=== PATIENT | male | born 1930 | race Caucasian/White ===

== ENCOUNTER 2017-02-27 21:17 | Inpatient (IN) ==
--- NOTE | 2017-02-27 21:52 | Emergency Department Note ---
ICuauhtemoc Kasabria, am scribing for, and in the presence of, Jammie Laboy DO 21 :38. IBenoit Debra, DO, personally performed the services described in this documentation, ascribed by Krystal Posadas in my presence, and it is both accurate and complete . Arrival - Arrival Chief Complaint: Chest Pain Stated Complaint: TRANSFER FOR NSTEMI ED Nursing Triage Note: TRANSFER FROM [facility] FOR NSTEMI, PT BEGAN HAVING CHEST PAIN THIS MORNING. Mode of Arrival: Stretcher Limitations: No Limitations Source: Patient Time Seen by Provider: 02/27/17 21:29 - History of Present Illness HPI Narrative: This is a 89 y/o white male presenting to the ED as transfer from [facility] for further evaluation for chest pain with SOB onset today at approximately 1100 while the pt was sitting on the porch. He describes that pain as very intense. His pain level is at 1-2 now. This is the first time the pt has had cardiac problems; otherwise, the pt is healthy with no PMHx. Initially, the pt thought his chest pain was indigestion so he took Rolaids with no relief. He then drank a cup of cold water and he states this helped with his chest pain. He denies diaphoresis, cough, fever, chills, nausea, vomiting, and radiating back pain. Consistency: constant Severity: moderate Allergies/Adverse Reactions: Allergies Allergy/AdvReac Type Severity Reaction Status Date / Time No Known Allergies Allergy Unverified 02/27/17 21:18 Review of System - Review of System 12 point system: reviewed and no additional remarkable complaints except as stated - Review of System Constitutional: Absent: chills, fever, weakness Eyes: Absent: vision change Head/Ears/Nose/Throat: Absent: nasal drainage Respiratory: Absent: cough, wheezing Cardiovascular: Present: chest pain. Absent: dyspnea on exertion Gastrointestinal: Absent: abdominal pain, nausea, vomiting, diarrhea Genitourinary male: Absent: dysuria Musculoskeletal: Absent: arm pain, back pain, leg pain, neck pain Skin: Absent: rash Neurological: Absent: headache, weakness, confusion, vertigo Psychiatric: Absent: anxiety Endocrine: Absent: fatigue Hematological/Lymphatic: Absent: easy bleeding Allergic/Immunologic: Absent: facial swelling Medical,Surgical,& Family Hx - Medical History Musculoskeletal: History of: Musculoskeletal Problems (ARTHRITIS) - Family History Family History: Reports;: Family Heart Disease, Family Hypertension - Social History Smoking Status: Never smoker Frequency of Alcohol Use: None Type of Drug Use: None Exam Vital Signs: Vital Signs Temperature 98.7 F 02/27/17 21:18 Pulse Rate 71 02/27/17 21:18 Respiratory Rate 20 02/27/17 22:02 Blood Pressure 138/82 02/27/17 21:18 O2 Sat by Pulse Oximetry 100 02/27/17 21:18 - General General appearance: alert, in no apparent distress - Head Head exam: Present: atraumatic, normocephalic, normal inspection - Eye Eye exam: Present: normal appearance, PERRL, EOMI - ENT ENT exam: Present: normal exam, normal oropharynx, mucous membranes moist, TM's normal bilaterally, normal external ear exam - Neck Neck exam: Present: normal inspection, full ROM, trachea midline. Absent: tenderness - Chest Chest inspection: Present: normal inspection, symmetric chest wall rise. Absent : tenderness - Respiratory Respiratory exam: Present: normal lung sounds bilaterally - Cardiovascular Cardiovascular exam: Present: regular rate, normal rhythm, normal heart sounds - Abdominal Exam Abdominal exam: Present: soft. Absent: distention, tenderness - Extremities Exam Extremities exam: Present: normal inspection, full ROM, normal capillary refill. Absent: tenderness, pedal edema, calf tenderness - Back Exam Back exam: Present: normal inspection, full ROM. Absent: tenderness - Neurological Exam Neurological exam: Present: alert, oriented X3, CN II-XII intact, normal gait, reflexes normal - Psychiatric Psychiatric exam: Present: normal affect, normal mood - Skin Skin exam: Present: warm, dry, intact, normal color. Absent: rash, diaphoresis Course Course Narrative: spoke with Dr Ferrari who will come down and see patient - Reevaluation(s) Reevaluation #1: pt doing well, no chest pain currently. DR Ferrari to admit pt and will take to cardiac catheterization technologist in am Results - Labs Lab Results: I have reviewed the patients labs Labs: Laboratory Tests 02/27/17 21:28 Total Creatine Kinase 697 H CK-MB (CK-2) 83.4 H CK and CKMB Interp 12.0 Troponin I 22.000 H - EKG EKG results: interpreted by CONRAD Disposition Clinical Impression: Non-ST elevated myocardial infarction Case discussed with: patient, patient's family Disposition: Still a Patient Condition: Stable Time of Disposition: 22:18
[2017-02-27] MEDS ORDERED: ACETAMINOPHEN 325 MG TABLET PO PRN (22:16)
[2017-02-27] MEDS ORDERED: ONDANSETRON 4 MG/2 ML VIAL IV PRN (22:16)
[2017-02-27] MEDS ORDERED: ZALEPLON 5 MG CAPSULE PO PRN (22:16)
[2017-02-27] MEDS ORDERED: TICAGRELOR 90 MG TABLET PO STA (22:21)
--- NOTE | 2017-02-27 22:26 | Cardiology History & Physical ---
Assessment and Plan - Time spent with patient Time spent with patient: Greater than 30 minutes (exam, interview,documentation and consent) (1) Dyslipidemia Status: Acute Current Visit: Yes (2) Elevated glucose Status: Acute Current Visit: Yes (3) Non-ST elevated myocardial infarction Status: Acute Current Visit: Yes History of Present Illness Chief complaint: Chest pain History of present illness: Mr. Chavez is a 86 year old male with no previous major medical diagnoses except osteoarthritis who has many risk factors including advanced age reformed tobacco use and strong family history with one brother passing away in his 60s from massive heart attack who presents with chest pain that came on acutely while he was sitting on the porch today associated with nausea and diaphoresis and his stated that he looks "pale." He states the pain was 10 out of 10 it felt like heartburn. He has had a couple episodes of heartburn in the last 6 months he has taken a a Rolaids for and it went away the Rolaids did not phase his discomfort today. He is very sedentary and he walks approximately 100 yards from his home to his shop 2 or 3 times a day and that is only exercise he routinely gets he is not experiencing any chest pain or shortness of breath with this. This is the first time the Rolaids has not helped his heartburn type discomfort. The patient went to the [facility] emergency room approximately 5 hours later. The patient's pain really sort of coming down during that time. He had an EKG there that showed sinus rhythm with a right bundle branch block no acute changes and when his troponin came back he received Lovenox he states this was around 6:00. They gave him an aspirin when he presented but they documented that he was pain-free he did not get nitroglycerin. He has received nitroglycerin and morphine since that time. He presented here to our emergency room was evaluated in our is called. I came to see the patient. I was called approximately 940. Saw and evaluated the patient possibly 10 PM he states that he was pain-free. They repeated a troponin here at our facility and his troponin is 22. I asked numerous times the patient states that he is not having any discomfort at this time. He is now approximately 11 hours post his most severe crescendo in his pain. I discussed with the patient all risk benefits and options. I told him that if he were still having discomfort I would take [facility] as he has no diagnostic EKG changes. He has sinus rhythm with a right bundle branch block some LVH type changes and nonspecific lateral ST segment changes. He again denied chest discomfort. I will load the patient with Brilinta tonight and place him in the ICU. His Lovenox dose according to him was around 530 or 6 :00 this evening. I have notified the [facility] they are aware of the patient's presence and we will anticipate left heart cath in the morning. Hopefully we will be successful via the right right radial approach. If in the interim the patient has any chest discomfort we will take sooner. The patient's home medications are not available in the chart however he takes at home a 81 mg aspirin daily Mobic daily which is taken for many years which is also a risk factor for coronary artery disease and meclizine for his chronic vertigo. Allergies Allergy/AdvReac Type Severity Reaction Status Date / Time No Known Allergies Allergy Unverified 02/27/17 21:18 - Constitutional Constitutional: Present: daytime sleepiness. Absent: anorexia, chills, weight gain, weight loss - EENT Eyes: Absent: blurry vision, diplopia Ears: Present: decreased hearing. Absent: ear discharge Nose, mouth and throat: Absent: headache(s), hoarseness, lip swelling, neck pain , throat swelling - Cardiovascular Cardiovascular: Present: as per HPI, chest pain at rest, diaphoresis, dyspnea, dyspnea on exertion. Absent: chest pain with activity, claudication, edema, radiating jaw, neck or arm pain, lightheadedness, orthopnea, palpitations, PND - Respiratory Respiratory: Present: dyspnea, dyspnea on exertion. Absent: cough - Gastrointestinal Gastrointestinal: Present: heartburn. Absent: abdominal pain, bloating - Genitourinary Genitourinary: Present: difficulty urinating, nocturia. Absent: hematuria - Musculoskeletal Musculoskeletal: Present: arthralgias - Neurological Neurological: Present: abnormal gait, tremor(s). Absent: convulsions, headache( s), memory loss - Psychiatric Psychiatric: Absent: anxiety, depression - Endocrine Endocrine: Absent: cold intolerance, heat intolerance - Hematologic/Lymphatic Hematologic/Lymphatic: Absent: easy bleeding, easy bruising Medical,Surgical,& Family Hx - Medical History Musculoskeletal: History of: Musculoskeletal Problems (ARTHRITIS, osteoarthritis ) - Surgical History Orthopedic Surgeries: Surgical HX of;: Orthopedic Surgery (Bilateral knee replacements, back surgery and surgery after trauma left nolen) - Family History Family History: Reports;: Family Heart Disease, Family Hypertension - Social History Smoking Status: Former smoker Frequency of Alcohol Use: None Type of Drug Use: None Marital Status: Lives With:: Spouse Functional capacity: independent ambulation Cardiology Physical Exam - Constitutional Vitals: Vital Signs Temp Pulse Resp BP Pulse Ox 98.7 F 71 20 138/82 100 02/27/17 21:18 02/27/17 21:18 02/27/17 22:02 02/27/17 21:18 02/27/17 21:18 Intake and Output 02/27/17 02/27/17 02/27/17 07:59 15:59 23:59 Other: Weight 102.058 kg Patient Weight 02/27/17 23:59 Weight 102.058 kg General appearance: normal weight - Head Head exam: Present: normal inspection - Eye Eye exam: Present: EOMI - ENT ENT exam: Present: normal exam - Neck Neck exam: Present: normal inspection - Respiratory Respiratory exam: Present: clear to auscultation bilaterally - Cardiovascular Cardiovascular exam: Present: regular rate and rhythm (I hear no rubs murmurs or gallops in the ambient noise in the emergency room) - GI/Abdominal GI/Abdominal exam: Present: normal bowel sounds - Extremities Exam Extremities exam: Present: other (Traumatic repair of left upper extremity with deformity right upper extremity is normal distal pulses are good on both lower extremities) - Neurological Exam Neurological exam: Present: alert, oriented X3 - Psychiatric Psychiatric exam: Present: normal affect, normal mood - Skin Skin exam: Present: normal color, warm Result/EKG - Labs Labs: Laboratory Results - last 24 hr 02/27/17 21:28 Total Creatine Kinase 697 H CK-MB (CK-2) 83.4 H CK and CKMB Interp 12.0 Troponin I 22.000 H - EKG EKG results: interpreted by me (RBBB ) Quality Measures - VTE Contraindication to Pharmacological VTE Prophylaxis: Already on Theraputic Agent , No Prophylaxis Needed
[2017-02-27] MEDS ORDERED: SODIUM CHLORIDE 0.45% 1,000 ML IV SCH (22:30)
[2017-02-27] MEDS ORDERED: NITROGLYCERIN DRIP 50 MG/250 ML BOTTLE IV SCH (23:09)
--- NOTE | 2017-02-27 23:36 | EKG Report ---
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
[2017-02-27] MEDS: ATORVASTATIN 80 MG TABLET PO SCH (23:51)
[2017-02-27] MEDS: MORPHINE 2 MG/1 ML SYRINGE IV PRN (23:52)
--- NOTE | 2017-02-28 02:14 | EKG Report ---
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
--- NOTE | 2017-02-28 05:11 | EKG Report ---
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
[2017-02-28 05:56] LABS: Basophils % 0.2 % (0.0-0.8); Eosinophils # 0.1 10*3/uL (0.0-0.87); Eosinophils % 1.6 % (0.00-10.9); Hematocrit 36.8 VOL% (42.0-52.0); Hemoglobin 12.4 GM/DL (14.0-18.0); Immature Granulocytes % 0.6 %; Immature Granulocytes Absolute 0.05 #; Lymphocytes # 1.3 10*3/uL (1.4-4.0); Lymphocytes % 16.4 % (21.2-54.2); Mean Corpuscular HGB Conc 33.7 GM/DL (32-36); Mean Corpuscular Hemoglobin 30 PG (27-34); Mean Corpuscular Volume 89.8 FL (87-102); Mean Platelet Volume 10.8 FL (9.6-12.0); Monocytes # 0.7 10*3/uL (0.11-0.8); Neutrophils # 5.8 10*3/uL (1.4-7.4); Neutrophils % 72.2 % (38.7-73.9); Platelet Count 217 T/CUMM (130-400); Red Cell Distribution Width 13.3 % (9.3-17.3); White Blood Count 8.1 T/CUMM (4-12)
--- NOTE | 2017-02-28 06:20 | History and Physical Update ---
Sedation H&P Update - History and Physical H&P was reviewed, the patient examined and there: are no changes in the patients condition since last H&P was completed. (No additional chest pain. Troponin continued to rise.) - Dictation Physical: refer to H&P completed by admitting physician - Physical Exam Mental Status: alert and oriented Heart: regular rate and rhythm Lung: clear to auscultation Abdomen: within normal limits Vitals: within normal limits - Sedation Plan for Sedation: moderate Patient Consent: Procedure disscussed with patient and patinet has consented., Risks and benefits were discussed with patient,including infection,, bleeding, injury to surrounding structures, seizure, temporary nerve, Patient understands and accepts potential risks/benefits and agrees to, proceed. ASA Class: III Airway Assessment: Class II: Soft palate, uvula, fauces visible
--- NOTE | 2017-02-28 06:22 | Event Note ---
The patient denies any more chest pain to me. He apparently told the nurses last night he was having some discomfort and they started the nitro infusion they say he has not had any more complaints since that time. His EKG looks like there may be some subtle anterior chest. Also talked to the patient about his tremor he states that he was told that there was a "blood clog" in the back of his head and there is nothing that they could do about it by someone in [place] previously. He states he has had this for a long time. I am not exactly sure of that diagnosis. He did not tell me anything about this last night medical history reviewed. He has had a sizable troponin elevation but continues to deny pain. Because of his tremor and what I suspect will be difficult anatomy I am going to choose to go femoral.
[2017-02-28] MEDS: ASPIRIN EC 81 MG TABLET PO SCH ×2 (06:35→11:40)
[2017-02-28 06:36] LABS: Calcium 8.8 MG/DL (8.5-10.1); Osmolality,Calculated 283.3 MOS/KG (273-304); Risk Ratio 3.98; Thyroid Stimulating Hormone 1.14 uIU/ml (0.358-3.74); VLDL CHOLESTEROL 28.6 MG/DL
[2017-02-28] MEDS: ENOXAPARIN 100 MG/ML SYRINGE SUBCUT SCH ×2 (06:52→17:40)
[2017-02-28] MEDS ORDERED: LIDOCAINE 1% 20 ML VIAL ONE (07:24)
[2017-02-28] MEDS ORDERED: HEPARIN/NACL 0.9% 2 UNITS/ML 1,000 ML IV ONE (07:24)
[2017-02-28] MEDS ORDERED: diphenhydrAMINE CAP 25 MG CAPSULE PO ONE (07:30)
[2017-02-28] MEDS ORDERED: DIAZEPAM 5 MG TABLET PO ONE (07:30)
[2017-02-28] MEDS ORDERED: fentaNYL 100 MCG/2 ML VIAL ONE (07:53)
[2017-02-28] MEDS ORDERED: MIDAZOLAM 2 MG/2 ML VIAL ONE (07:53)
[2017-02-28] MEDS ORDERED: diphenhydrAMINE 50 MG/1 ML VIAL ONE (08:04)
[2017-02-28] MEDS ORDERED: TICAGRELOR 90 MG TABLET PO SCH (09:00)
--- NOTE | 2017-02-28 09:02 | Cardiology Operative Report ---
Date of Procedure:: 02/28/17 Pre-op diagnosis: NSTEMI Post-op diagnosis: other (Severe 3 vessel CADZ with ICM and mitral regurgitation , AAA and right iliac artery) Procedure: Procedures: 1. Left heart catheterization resting hemodynamics 2. Left ventriculography 3. Selective left and right coronary angiography 4. Selective left subclavian angiography 5. Distal abdominal aortic angiography with visualization of the iliacs 6. Right femoral iliac angiography 7. Closure right femoral arteriotomy After consent was taken from the patient. Taken to the catheterization lab for left heart catheterization via the femoral artery. Time out was taken and recorded. 1% lidocaine was infiltrated in the skin and subcutaneous tissue overlying the right femoral artery. Modified Seldinger technique and an 18- gauge Cook needle was used for access to the right femoral artery. An 0.35 J- wire was advanced through the needle into the central aorta under fluoroscopy. A small skin was made and a 6 Slovenian sheath was placed over the wire. The sheath was aspirated and flushed. A JR4 catheter was advanced over the wire into the central aorta. This was done due to tortuosity difficulty advancing the wire at the bifurcation. The JR4 was used to get around the tortuous iliacs and distal aorta. The right coronary was selectively engaged and orthogonal views of the right coronary artery were obtained. AJL46 was then exchanged over the wire and was advanced into the left main coronary artery. Multiple orthogonal views of the left system were obtained. The catheter was then exchanged over the wire. The sheath was aspirated and flushed The catheter was then exchanged over the wire, the sheath was aspirated and flushed. At this time an angled pigtail catheter was advanced across the aortic valve into the ventricle. Pressure measurements were obtained and a cine ventriculogram was performed in the HOLDER projection with a hand-injection. (No power injector available) Pullback measurements were performed. The catheter was then exchanged over the wire for the previously used JR4 which was used to selectively engage the left subclavian and visualization of the internal mammary artery in situ. The cath was then pulled back to the distal abdominal aorta and a hand-injection was used to visualize the distal aorta and the proximal portions of the tortuous iliacs. The tester operator reviewed the films. CT surgery was called and Dr. Greenwood came to review the films with me in the cardiac catheterization suite. The sheath was aspirated and flushed and a right femoral and iliac angiography was performed. The access site was amenable for closure and the area was reprepped with ChloraPrep and draped with sterile towels. The Angio-Seal closure device was used in standard technique. There was no hematoma and distal pulses were good. Total diagnostic fluoroscopy time 3.7 minutes with total fluoroscopy dose 235 mGy. Total contrast exposure 60 cc of Omnipaque FINDINGS: LV: 125/8 LVEDP: 20 Ao: 121/68 EF: Although the ventricle was suboptimally filled with a hand-injection ejection fraction is estimated to be approximately 40% there is global hypokinesis but the inferior wall appears to be more hypokinetic. There is to be at least mild possibly moderate mitral regurgitation. We will follow this up with transthoracic echocardiography LM: Angiographically normal LAD: This is a diffusely diseased vessel. There are 3 sequential filling defects seen angiographically in the proximal portion of the LAD. This is at least 80% stenosis. Is very difficult to tell if this is either a dissection, calcification of plaque or possibly thrombus. It is not demonstrated to be mobile. The midportion of the vessel is heavily diseased and the remainder of the vessel is relatively healthy-appearing angiographically. There is a very large diffusely diseased bifurcating LAD. There is 90% diffuse proximal and mid disease. This vessel appears to be a reasonable target for grafting. LCx: This is a nondominant vessel. There is a large first obtuse marginal has approximately 90% stenosis in the proximal segment it bifurcates the more apical branch is negligible RCA:Very large and dominant vessel. There is two moderate stenosis in the AV groove portion of the RCA. There is a 90% stenosis of the ostial portion of the PLB. This is a very large vessel. Aorta: The distal aorta is aneurysmal and the aneurysm extends into the proximal iliacs bilaterally. RFA/JAYDE:Angiographically normal Assessment: 1. Severe three-vessel coronary disease as described above 2. Ischemic cardiomyopathy, decompensated with systolic and diastolic dysfunction 3. Mitral regurgitation 4. Infrarenal abdominal aortic aneurysm PLAN: Continue aspirin and Plavix. Anticipate coronary bypass grafting electively once clopidogrel has had time to dissipate sooner if the patient becomes hemodynamically unstable. Continue appropriate medical therapy. Cardiac rehabilitation consultation. Implants: Angioseal closure device RFA Anesthesia: moderate conscious sedation Surgeon / Physician: Sharmin Ferrari Home Teaching Grades 7 And 8 Teacher: none Estimated blood loss: none Specimens: none sent Condition: stable Disposition: ICU/CCU
--- NOTE | 2017-02-28 09:17 | EKG Report ---
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
[2017-02-28] MEDS: PANTOPRAZOLE 40 MG TABLET PO SCH (11:40)
[2017-02-28] MEDS: CARVEDILOL 3.125 MG TABLET PO SCH ×2 (11:40→21:51)
[2017-02-28] MEDS: ISOSORBIDE MONONITRATE 30 MG TABLET PO SCH (11:40)
--- NOTE | 2017-02-28 11:43 | ECHO Report ---
Jimmy Chavez 02/28/2017 Exam Date: 09:14 Referring Physician: Elinor Washington Technologist: YAIR Age: 86 Ht (in): 73 Wt (lb): 212 MExam Location: [facility] Gender: Echo [id number]: Chest pain, unspecified, Non-ST elevIndications:ation (NSTEMI) myocardial infarction, Dyslipidemia, Dyspnea, unspecified, Elevated troponin, s/p CATH BP: 98 / 63 HR: 61 SinusRhythm: goodTechnical Quality: IMPRESSIONS Left ventricular ejection fraction is estimated at 50-55 %. There is mid to distal inferior posterior hypokinesis. Diastolic parameters most consistent with grade 1 diastolic dysfunction or impaired relaxation. Tricuspid regurgitation velocities suggest a RVSP of 22 mmHg. Mild aortic insufficiency Mild mitral regurgitation MEASUREMENTS (Male / Female) Normal Values 2D ECHO LV Diastolic Diameter PLAX 5.9 cm 4.2 - 5.9 / 3.9 - 5.3 cm LV Systolic Diameter PLAX 4.3 cm LV Fractional Shortening PLAX 27.8 % IVS Diastolic Thickness 1.2 cm 0.6 - 1.0 / 0.6 - 0.9 cm LVPW Diastolic Thickness 1.2 cm 0.6 - 1.0 / 0.6 - 0.9 cm RV Internal Dim ED PLAX 3.5 cm Aortic Root Diameter 3.6 cm LA Systolic Diameter LX 4.2 cm 3.0 - 4.0 / 2.7 - 3.8 cm DOPPLER TR Peak Velocity 232.0 cm/s TR Peak Gradient 21.5 mmHg FINDINGS Left Ventricle Normal left ventricular cavity size. Mild left ventricular hypertrophy. Left ventricular ejection fraction is estimated at 50-55 %. There is mid to distal inferior posterior hypokinesis. Diastolic parameters most consistent with grade 1 diastolic dysfunction or impaired relaxation Right Ventricle The right ventricle is normal in size and function. Right Atrium Mild atrial enlargement in apical view (elongated RA). Left Atrium Mild atrial enlargement in apical view (elongated LA). Mitral Valve Mitral valve sclerosis. Mild mitral annular calcification. Mild mitral valve regurgitation. Aortic Valve Aortic valve sclerosis without stenosis. Trace aortic valve regurgitation. Tricuspid Valve Morphologically normal tricuspid valve. Mild tricuspid valve regurgitation. Tricuspid regurgitation velocities suggest a RVSP of 22 mmHg. Pulmonic Valve Morphologically normal pulmonic valve. Trace pulmonary valve regurgitation. Pericardium Normal pericardium without effusion. Aorta Normal ascending aorta dimension. Sharmin Ferrari (Electronically Signed) 28 February 2017 Final Date: 11:43
--- NOTE | 2017-02-28 11:52 | Ultrasound Report ---
US aorta Clinical Information: Screening for abdominal aortic aneurysm Comparison: None available Findings: Targeted ultrasound evaluation with grayscale and color Doppler as well as spectral analysis within the abdomen was performed. The proximal aorta measures 2.7 x 2.7 cm diameter. Mid aorta measures 2.2 x 2.2 cm diameter. Distal aorta is enlarged measuring up to 5 x 4.2 cm. Distal aorta also demonstrates some soft thrombus, as expected. The iliac arteries are obscured due to overlying bowel gas. Impression: Demonstration of a distal abdominal aortic aneurysm measuring up to [address] angiography abdomen and pelvis for definitive evaluation is recommended when clinically feasible. PROCEDURE INTERPRETED AT [facility] DEPARTMENT OF RADIOLOGY Final Report Signed by: Keanu Loza
--- NOTE | 2017-02-28 12:06 | Ultrasound Report ---
Exam: US carotid duplex BI Date: 02/28/2017 8:41 AM Indication: Cerebrovascular disease, stroke Technique: Duplex scan of the bilateral carotid arteries using B-mode/grayscale imaging and Doppler spectral analysis and color flow. Findings: Right Flow velocities centimeters per second Common carotid artery: 65 Proximal ICA: 53 Distal ICA: 48 External carotid artery: 112 Vertebral artery: 56 with antegrade flow ICA/CCA ratio: 0.8 Measurements in millimeters Distal ICA: 5.7 Left: Flow velocities centimeters per second Common carotid artery: 59 Proximal ICA: 59 Distal ICA: 51 External carotid artery: 200 Vertebral artery: 64 with antegrade flow ICA/CCA ratio: 1.0 Measurements in millimeters Distal ICA: 5 Minimal focal primary calcified atherosclerotic plaque is noted at the bilateral distal common and proximal internal carotid arteries no definite high-grade stenosis is evident within either internal carotid artery by ultrasound criteria. Increased flow velocities within the left external carotid artery suggests potential moderate stenosis at the origin. Color flow is present in all visualized vessels with Doppler analysis. Impression: No evidence of significant internal carotid artery stenosis by ultrasound criteria. Minimal scattered predominantly calcified atherosclerotic plaque is however noted bilaterally. Today studies were performed utilizing indirect NASCET criteria The ultrasound images were stored and captured PROCEDURE INTERPRETED AT [facility] DEPARTMENT OF RADIOLOGY Final Report Signed by: Keanu Loza
[2017-02-28] MEDS: ATORVASTATIN 80 MG TABLET PO SCH (21:45)
[2017-03-01 04:37] LABS: Basophils % 0.3 % (0.0-0.8); Eosinophils # 0.2 10*3/uL (0.0-0.87); Eosinophils % 2.5 % (0.00-10.9); Hematocrit 35.7 VOL% (42.0-52.0); Hemoglobin 11.9 GM/DL (14.0-18.0); Immature Granulocytes % 0.6 %; Immature Granulocytes Absolute 0.04 #; Lymphocytes # 1.3 10*3/uL (1.4-4.0); Lymphocytes % 19.3 % (21.2-54.2); Mean Corpuscular HGB Conc 33.3 GM/DL (32-36); Mean Corpuscular Hemoglobin 30 PG (27-34); Mean Corpuscular Volume 91.1 FL (87-102); Mean Platelet Volume 11.2 FL (9.6-12.0); Monocytes # 0.6 10*3/uL (0.11-0.8); Monocytes % 9.4 % (1.7-12.7); Neutrophils # 4.6 10*3/uL (1.4-7.4); Neutrophils % 67.9 % (38.7-73.9); Platelet Count 186 T/CUMM (130-400); Red Blood Count 3.92 MC/CUMM (3.8-5.5); Red Cell Distribution Width 13.5 % (9.3-17.3); White Blood Count 6.7 T/CUMM (4-12)
[2017-03-01 05:07] LABS: Calcium 8.3 MG/DL (8.5-10.1)
[2017-03-01 05:08] LABS: Troponin I Only 14.3 NG/ML (0.00-0.045)
[2017-03-01] MEDS: ENOXAPARIN 100 MG/ML SYRINGE SUBCUT SCH ×2 (06:05→18:12)
--- NOTE | 2017-03-01 07:19 | EKG Report ---
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
--- NOTE | 2017-03-01 08:06 | Cardiothoracic Progress Note ---
Cardiothoracic Subjective Interval history: Patient is a 86-year-old man who presented with an acute myocardial infarction yesterday. He was taken urgently to the [facility] where severe triple-vessel coronary disease was encountered without evidence of approachable lesions percutaneously. With anticoagulation and nitroglycerin therapy the patient's pain resolved and this morning he is asymptomatic. His troponins reached 40 but are trending down and are only 18 this morning. Even though his advanced age makes his surgical risk elevated, I believe that it is almost certainly he will re-infarct unless revascularized. A tentative plan is to continue to hold antiplatelet therapy and aim for surgery on . This will be determined somewhat by his clinical course. He is to be transferred to telemetry later this morning. Exam (Progress Note) - Constitutional Vitals: Period Temp Pulse Resp BP Sys/Mac Pulse Ox Last 24 Hr 97.2 F-98.0 F 56-79 12-24 83-136/43-92 90-100 Result/EKG - Labs CBC & BMP: 03/01/17 03:06 03/01/17 03:06 Labs: Laboratory Results - last 24 hr 03/01/17 03/01/17 03:06 03:06 WBC 6.7 RBC 3.92 Hgb 11.9 L Hct 35.7 L MCV 91.1 MCH 30 MCHC 33.3 RDW 13.5 Plt Count 186 MPV 11.2 Neut % (Auto) 67.9 Lymph % (Auto) 19.3 L [place] % (Auto) 9.4 Eos % (Auto) 2.5 Baso % (Auto) 0.3 Neut # (Auto) 4.6 Lymph # (Auto) 1.3 L [place] # (Auto) 0.6 Eos # (Auto) 0.2 Baso # (Auto) 0.0 Immature Gran % 0.6 Nucleated RBC % 0.0 Immature Gran # 0.04 Nucleated RBCs # 0.00 Sodium 143 Potassium 4.0 Chloride 108 H Carbon Dioxide 25 Anion Gap 14.0 BUN 24 H Creatinine 1.20 GFR Calculation 69 BUN/Creatinine Ratio 20.00 Glucose 90 Calculated Osmolality 288.0 Calcium 8.3 L Troponin I 14.300 H D Quality Measures - VTE Contraindication to Pharmacological VTE Prophylaxis: Already on Theraputic Agent , No Prophylaxis Needed
--- NOTE | 2017-03-01 08:10 | EKG Report ---
Stationary ECG Study 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
--- NOTE | 2017-03-01 08:52 | Cardiology Progress Note ---
Assessment and Plan (1) Dyslipidemia Status: Chronic Current Visit: Yes (2) Elevated glucose Status: Chronic Current Visit: Yes (3) Non-ST elevated myocardial infarction Status: Acute Assessment and plan: For three-vessel or possibly four-vessel coronary bypass grafting. Current Visit: Yes (4) Vertebral basilar insufficiency Status: Acute Current Visit: Yes (5) Abdominal aortic aneurysm Status: Acute Current Visit: Yes (6) Coronary artery disease Status: Chronic Current Visit: Yes Qualifiers: Coronary Disease-Associated Artery/Lesion type: [place] artery [place] vs. transplanted heart: [place] heart Associated angina: angina presence unspecified Qualified Code(s): I25.10 - Atherosclerotic heart disease of [place] coronary artery without angina pectoris Cardiology - PN: Subj Interval history: Mr. Chavez has no complaints this morning has not had any additional chest pain discussed with Dr. Greenwood again. I discussed with his family as well. I reviewed the data since yesterday his echocardiogram shows an ejection fraction approximately 50-55% with inferior posterior hypokinesis and no significant valvular abnormality. He has triple-vessel disease that I feel is best served with coronary artery bypass grafting. He was loaded with Brilinta on admission and will postpone surgery until he has had a less bleeding risk if possible. His carotid Doppler showed no significant carotid vascular disease although he appears to have posterior cerebral circulation problems in the past. He also has an infra renal abdominal aortic aneurysm that will need to potentially be addressed following his coronary artery bypass grafting. At the time of his angiography of his abdomen this appeared to extend into the iliac. The distal aorta measures 5 cm. He needs at least serial abdominal ultrasounds. The patient has not had any additional chest pain he has been stable from a vitals standpoint including no dysrhythmia. I discussed with Dr. Greenwood and I discussed with the family will transfer the patient to telemetry so he can be with his family. He is not very excited about being in the hospital and his stated on multiple occasions that he is going to leave. Hopefully being with his family will help this. He voiced understanding is very reasonable we will transfer to the floor. Exam (Progress Note) - Constitutional Vitals: Period Temp Pulse Resp BP Sys/Mac Pulse Ox Last 24 Hr 97.0 F-98.0 F 56-79 12-24 83-136/43-92 90-98 General appearance: normal weight - Head Head exam: Present: normal inspection - Eye Eye exam: Present: EOMI Pupils: Present: SASHA - Neck Neck exam: Present: normal inspection - Respiratory Respiratory exam: Present: clear to auscultation bilaterally - Cardiovascular Cardiovascular exam: Present: regular rate and rhythm (No gallop rub murmur or click) - GI/Abdominal GI/Abdominal exam: Present: normal bowel sounds - Extremities Exam Extremities exam: Present: other (Cath site looks good continue anticoagulation) - Back Exam Back exam: Present: normal inspection - Neurological Exam Neurological exam: Present: alert, oriented X3 - Psychiatric Psychiatric exam: Present: normal affect, normal mood - Skin Skin exam: Present: normal color, warm, dry Result/EKG - Labs CBC & BMP: 03/01/17 03:06 03/01/17 03:06 Labs: Laboratory Results - last 24 hr 03/01/17 03/01/17 03:06 03:06 WBC 6.7 RBC 3.92 Hgb 11.9 L Hct 35.7 L MCV 91.1 MCH 30 MCHC 33.3 RDW 13.5 Plt Count 186 MPV 11.2 Neut % (Auto) 67.9 Lymph % (Auto) 19.3 L [place] % (Auto) 9.4 Eos % (Auto) 2.5 Baso % (Auto) 0.3 Neut # (Auto) 4.6 Lymph # (Auto) 1.3 L [place] # (Auto) 0.6 Eos # (Auto) 0.2 Baso # (Auto) 0.0 Immature Gran % 0.6 Nucleated RBC % 0.0 Immature Gran # 0.04 Nucleated RBCs # 0.00 Sodium 143 Potassium 4.0 Chloride 108 H Carbon Dioxide 25 Anion Gap 14.0 BUN 24 H Creatinine 1.20 GFR Calculation 69 BUN/Creatinine Ratio 20.00 Glucose 90 Calculated Osmolality 288.0 Calcium 8.3 L Troponin I 14.300 H D - EKG EKG results: interpreted by me (Sinus rhythm with a right bundle branch block left anterior fascicular block and T-wave changes inferiorly.) Quality Measures - VTE Contraindication to Pharmacological VTE Prophylaxis: Already on Theraputic Agent , No Prophylaxis Needed
[2017-03-01] MEDS: CARVEDILOL 3.125 MG TABLET PO SCH ×2 (09:54→21:01)
[2017-03-01] MEDS: ASPIRIN EC 81 MG TABLET PO SCH (09:54)
[2017-03-01] MEDS: PANTOPRAZOLE 40 MG TABLET PO SCH (09:55)
[2017-03-01] MEDS: ISOSORBIDE MONONITRATE 30 MG TABLET PO SCH (09:55)
[2017-03-01] MEDS: MORPHINE 2 MG/1 ML SYRINGE IV PRN (16:38)
[2017-03-01] MEDS: LISINOPRIL 2.5 MG TABLET PO SCH (18:12)
[2017-03-01] MEDS: ATORVASTATIN 80 MG TABLET PO SCH (21:01)
[2017-03-02 05:26] LABS: Basophils % 0.3 % (0.0-0.8); Eosinophils # 0.2 10*3/uL (0.0-0.87); Eosinophils % 3.2 % (0.00-10.9); Hematocrit 33.9 VOL% (42.0-52.0); Hemoglobin 11.3 GM/DL (14.0-18.0); Immature Granulocytes % 0.5 %; Immature Granulocytes Absolute 0.03 #; Lymphocytes # 1.2 10*3/uL (1.4-4.0); Lymphocytes % 19.8 % (21.2-54.2); Mean Corpuscular HGB Conc 33.3 GM/DL (32-36); Mean Corpuscular Hemoglobin 30 PG (27-34); Mean Corpuscular Volume 91.1 FL (87-102); Mean Platelet Volume 10.6 FL (9.6-12.0); Monocytes # 0.7 10*3/uL (0.11-0.8); Monocytes % 11.2 % (1.7-12.7); Neutrophils # 4.1 10*3/uL (1.4-7.4); Platelet Count 177 T/CUMM (130-400); Red Blood Count 3.72 MC/CUMM (3.8-5.5); Red Cell Distribution Width 13.6 % (9.3-17.3); White Blood Count 6.3 T/CUMM (4-12)
[2017-03-02] MEDS: ENOXAPARIN 100 MG/ML SYRINGE SUBCUT SCH ×2 (06:02→17:10)
[2017-03-02 06:21] LABS: Calcium 7.7 MG/DL (8.5-10.1); Potassium 3.9 MMOL/L (3.5-5.1)
--- NOTE | 2017-03-02 06:35 | Cardiothoracic Progress Note ---
Cardiothoracic Subjective Interval history: Patient had a comfortable night. He has not had any further chest pain. Plan tentatively is for bypass surgery on . Exam (Progress Note) - Constitutional Vitals: Period Temp Pulse Resp BP Sys/Mac Pulse Ox Last 24 Hr 97.0 F-97.9 F 63-80 12-20 100-130/55-84 94-100 Result/EKG - Labs CBC & BMP: 03/02/17 05:14 03/02/17 05:14 Labs: Laboratory Results - last 24 hr 03/02/17 03/02/17 05:14 05:14 WBC 6.3 RBC 3.72 L Hgb 11.3 L Hct 33.9 L MCV 91.1 MCH 30 MCHC 33.3 RDW 13.6 Plt Count 177 MPV 10.6 Neut % (Auto) 65.0 Lymph % (Auto) 19.8 L [place] % (Auto) 11.2 Eos % (Auto) 3.2 Baso % (Auto) 0.3 Neut # (Auto) 4.1 Lymph # (Auto) 1.2 L [place] # (Auto) 0.7 Eos # (Auto) 0.2 Baso # (Auto) 0.0 Immature Gran % 0.5 Nucleated RBC % 0.0 Immature Gran # 0.03 Nucleated RBCs # 0.00 Sodium 143 Potassium 3.9 Chloride 109 H Carbon Dioxide 25 Anion Gap 12.9 BUN 27 H Creatinine 1.40 H GFR Calculation 58 BUN/Creatinine Ratio 19.00 Glucose 101 Calculated Osmolality 289.0 Calcium 7.7 L Quality Measures - VTE Contraindication to Pharmacological VTE Prophylaxis: Already on Theraputic Agent , No Prophylaxis Needed
--- NOTE | 2017-03-02 08:19 | EKG Report ---
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
[2017-03-02] MEDS: CARVEDILOL 3.125 MG TABLET PO SCH ×2 (09:33→21:24)
[2017-03-02] MEDS: LISINOPRIL 2.5 MG TABLET PO SCH (09:33)
[2017-03-02] MEDS: ISOSORBIDE MONONITRATE 30 MG TABLET PO SCH (09:34)
[2017-03-02] MEDS: PANTOPRAZOLE 40 MG TABLET PO SCH (09:34)
[2017-03-02] MEDS: ASPIRIN EC 81 MG TABLET PO SCH (09:34)
[2017-03-02] MEDS: DOCUSATE SODIUM 100 MG CAPSULE PO PRN (12:57)
--- NOTE | 2017-03-02 15:32 | Cardiology Progress Note ---
Assessment and Plan (1) Coronary artery disease Status: Chronic Assessment and plan: See plan of care listed below. Current Visit: Yes Qualifiers: Coronary Disease-Associated Artery/Lesion type: [place] artery [place] vs. transplanted heart: [place] heart Associated angina: angina presence unspecified Qualified Code(s): I25.10 - Atherosclerotic heart disease of [place] coronary artery without angina pectoris (2) Non-ST elevated myocardial infarction Status: Acute Assessment and plan: See plan of care listed below. Current Visit: Yes (3) Abdominal aortic aneurysm Status: Acute Current Visit: Yes (4) Dyslipidemia Status: Chronic Assessment and plan: See plan of care listed below. Current Visit: Yes (5) Osteoarthritis Status: Chronic Assessment and plan: See plan of care listed below. Current Visit: Yes Cardiology - PN: Subj Interval history: Doctor Assistant: New to cardiology (Dr. Ferrari) SUMMARY: Mr. Chavez, 86-year-old male presented to [facility] February 27, 2017 with non-ST elevation [place]. He has no previous major medical diagnoses other than osteoarthritis. Subsequently, patient underwent heart catheterization per Dr. Ferrari with the following impressions noted: Assessment: 1. Severe three-vessel coronary disease as described above 2. Ischemic cardiomyopathy, decompensated with systolic and diastolic dysfunction 3. Mitral regurgitation 4. Infrarenal abdominal aortic aneurysm PLAN: Continue aspirin and Plavix. Anticipate coronary bypass grafting electively once clopidogrel has had time to dissipate sooner if the patient becomes hemodynamically unstable. Continue appropriate medical therapy. Cardiac rehabilitation consultation. Post cardiac catheterization patient was transported back to the telemetry unit in stable condition. Dr. Greenwood was then consulted for possible bypass surgery. Dr. Greenwood plans for CABG . Patient is doing well and is without complaints. Denies chest pain, heaviness and tightness. Currently not requiring oxygen. Vital signs are stable. Assessment/plan: 1. CORONARY ARTERY DISEASE - Clinically stable at present. Denies chest pain , heaviness and tightness. Plan for CABG morning with Dr. Greenwood. Continue therapeutic dose of Lovenox, aspirin, beta-anna and lipid-lowering agent. 2. DYSLIPIDEMIA - Continue current plan of care with lipid lowering agent. 3. OSTEOARTHRITIS - Clinically stable at present. 4. AAA - Clinically stable. 5. Non-STEMI [place] - Troponin peaked at 42.8. Will plan for CABG . Further plan and addendum to follow per Dr. Bernard. Exam (Progress Note) - Constitutional Vitals: Period Temp Pulse Resp BP Sys/Mac Pulse Ox Last 24 Hr 97.6 F-97.6 F 76-87 12-20 94-106/54-56 95-96 Exam: General: Appears well with no apparent distress. Pleasant and cooperative. Appears comfortable. HEENT: PERRL, normocephalic, atraumatic. Mucous membranes moist. No jaundice noted. Conjunctiva moist and clear, sclerae anicteric Neck: No JVD/HJR, no thyromegaly or lymphadenopathy noted. Cardiac: Regular rate and rhythm. No murmur rub or gallop. Lungs: Clear to auscultation without accessory muscle use to assist the respiratory pattern. Not requiring oxygen. Abdomen: Soft, bowel sounds normoactive. Nontender and nondistended. No abdominal bruit or thrill noted. No masses noted. Extremities: No clubbing, cyanosis noted. No edema noted. Upper extremity pulses 2+. Lower extremity pulses 2+. Capillary refill less than 3 seconds. Skin: No unusual lesions or rashes. No skin breakdown appreciated. Neuro: Awake, alert and oriented 3. Moves all extremities well without hemiparesis or paralysis. No essential tremor is appreciated. Result/EKG - Labs CBC & BMP: 03/02/17 05:14 03/02/17 05:14 Lab Results: I have reviewed the past 24 hour labs Labs: Laboratory Results - last 24 hr 03/02/17 03/02/17 05:14 05:14 WBC 6.3 RBC 3.72 L Hgb 11.3 L Hct 33.9 L MCV 91.1 MCH 30 MCHC 33.3 RDW 13.6 Plt Count 177 MPV 10.6 Neut % (Auto) 65.0 Lymph % (Auto) 19.8 L [place] % (Auto) 11.2 Eos % (Auto) 3.2 Baso % (Auto) 0.3 Neut # (Auto) 4.1 Lymph # (Auto) 1.2 L [place] # (Auto) 0.7 Eos # (Auto) 0.2 Baso # (Auto) 0.0 Immature Gran % 0.5 Nucleated RBC % 0.0 Immature Gran # 0.03 Nucleated RBCs # 0.00 Sodium 143 Potassium 3.9 Chloride 109 H Carbon Dioxide 25 Anion Gap 12.9 BUN 27 H Creatinine 1.40 H GFR Calculation 58 BUN/Creatinine Ratio 19.00 Glucose 101 Calculated Osmolality 289.0 Calcium 7.7 L Quality Measures - VTE Contraindication to Pharmacological VTE Prophylaxis: Already on Theraputic Agent , No Prophylaxis Needed
[2017-03-02] MEDS: MORPHINE 2 MG/1 ML SYRINGE IV PRN (18:57)
[2017-03-02] MEDS: ATORVASTATIN 80 MG TABLET PO SCH (21:24)
[2017-03-03] MEDS: ENOXAPARIN 100 MG/ML SYRINGE SUBCUT SCH ×2 (04:42→16:20)
[2017-03-03 05:56] LABS: Calcium 8.1 MG/DL (8.5-10.1); Magnesium 2.4 MG/DL (1.8-2.4); Potassium 4.6 MMOL/L (3.5-5.1)
[2017-03-03] MEDS ORDERED: DEXTROSE 50% 25 GM/50 ML VIAL IV PRN (06:30)
[2017-03-03] MEDS ORDERED: GLUCAGON 1 MG VIAL IM PRN (06:30)
--- NOTE | 2017-03-03 06:30 | Cardiothoracic Progress Note ---
Cardiothoracic Subjective Interval history: Patient has been stable and pain-free. We are planning for surgery on and the patient is agreeable. Exam (Progress Note) - Constitutional Vitals: Period Temp Pulse Resp BP Sys/Mac Pulse Ox Last 24 Hr 97.6 F-98.8 F 62-87 18-20 90-123/52-59 95-98 Result/EKG - Labs CBC & BMP: 03/02/17 05:14 03/03/17 04:04 Labs: Laboratory Results - last 24 hr 03/03/17 04:04 Sodium 143 Potassium 4.6 Chloride 108 H Carbon Dioxide 26 Anion Gap 13.6 BUN 26 H Creatinine 1.30 GFR Calculation 63 BUN/Creatinine Ratio 20.00 Glucose 92 Calculated Osmolality 289.0 Calcium 8.1 L Magnesium 2.4 Quality Measures - VTE Contraindication to Pharmacological VTE Prophylaxis: Already on Theraputic Agent , No Prophylaxis Needed
--- NOTE | 2017-03-03 07:29 | EKG Report ---
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
[2017-03-03 07:49] LABS: Basophils % 0.3 % (0.0-0.8); Eosinophils # 0.3 10*3/uL (0.0-0.87); Eosinophils % 4.3 % (0.00-10.9); Hematocrit 36.1 VOL% (42.0-52.0); Hemoglobin 11.8 GM/DL (14.0-18.0); Immature Granulocytes % 0.5 %; Immature Granulocytes Absolute 0.03 #; Lymphocytes # 1.4 10*3/uL (1.4-4.0); Lymphocytes % 22.3 % (21.2-54.2); Mean Corpuscular HGB Conc 32.7 GM/DL (32-36); Mean Corpuscular Hemoglobin 30 PG (27-34); Mean Corpuscular Volume 92.8 FL (87-102); Mean Platelet Volume 11.5 FL (9.6-12.0); Monocytes # 0.7 10*3/uL (0.11-0.8); Monocytes % 11.1 % (1.7-12.7); Neutrophils # 3.9 10*3/uL (1.4-7.4); Neutrophils % 61.5 % (38.7-73.9); Platelet Count 180 T/CUMM (130-400); Red Blood Count 3.89 MC/CUMM (3.8-5.5); Red Cell Distribution Width 13.6 % (9.3-17.3); White Blood Count 6.3 T/CUMM (4-12)
[2017-03-03] MEDS: LISINOPRIL 2.5 MG TABLET PO SCH (08:32)
[2017-03-03] MEDS: ISOSORBIDE MONONITRATE 30 MG TABLET PO SCH (08:32)
[2017-03-03] MEDS: ASPIRIN EC 81 MG TABLET PO SCH (08:32)
[2017-03-03] MEDS: CARVEDILOL 3.125 MG TABLET PO SCH ×2 (08:32→21:11)
[2017-03-03] MEDS: PANTOPRAZOLE 40 MG TABLET PO SCH (08:32)
--- NOTE | 2017-03-03 13:03 | Cardiology Progress Note ---
Assessment and Plan (1) Coronary artery disease Status: Chronic Assessment and plan: See plan of care listed below. Current Visit: Yes Qualifiers: Coronary Disease-Associated Artery/Lesion type: [place] artery [place] vs. transplanted heart: [place] heart Associated angina: angina presence unspecified Qualified Code(s): I25.10 - Atherosclerotic heart disease of [place] coronary artery without angina pectoris (2) Non-ST elevated myocardial infarction Status: Acute Assessment and plan: See plan of care listed below. Current Visit: Yes (3) Abdominal aortic aneurysm Status: Acute Current Visit: Yes (4) Dyslipidemia Status: Chronic Assessment and plan: See plan of care listed below. Current Visit: Yes (5) Osteoarthritis Status: Chronic Assessment and plan: See plan of care listed below. Current Visit: Yes Cardiology - PN: Subj Interval history: Dialysis Clinical Manager: New to cardiology (Dr. Ferrari) SUMMARY: Mr. Chavez, 86-year-old male presented to [facility] February 27, 2017 with non-ST elevation [place]. He has no previous major medical diagnoses other than osteoarthritis. Subsequently, patient underwent heart catheterization per Dr. Ferrari with the following impressions noted: Assessment: 1. Severe three-vessel coronary disease as described above 2. Ischemic cardiomyopathy, decompensated with systolic and diastolic dysfunction 3. Mitral regurgitation 4. Infrarenal abdominal aortic aneurysm PLAN: Continue aspirin and Plavix. Anticipate coronary bypass grafting electively once clopidogrel has had time to dissipate sooner if the patient becomes hemodynamically unstable. Continue appropriate medical therapy. Cardiac rehabilitation consultation. February UPDATE: Post cardiac catheterization patient was transported back to the telemetry unit in stable condition. Dr. Greenwood was then consulted for possible bypass surgery. Dr. Greenwood plans for CABG . Patient was seen sitting up in chair eating lunch in no acute distress. Currently, not requiring oxygen. He denies chest pain, heaviness and tightness. Also denies shortness of breath. Labs have been reviewed. Vital signs are stable. Patient is currently in normal sinus rhythm without any overt arrhythmias or ectopy noted. Patient is agreeable for surgery on . Assessment/plan: 1. CORONARY ARTERY DISEASE - Clinically stable at present. Denies chest pain , heaviness and tightness. Plan for CABG morning with Dr. Greenwood. Continue therapeutic dose of Lovenox, aspirin, beta-anna and lipid-lowering agent. Will discontinue Lovenox Thursday. 2. DYSLIPIDEMIA - Continue current plan of care with lipid lowering agent. 3. OSTEOARTHRITIS - Clinically stable at present. 4. AAA - Clinically stable. 5. Non-STEMI [place] - Troponin peaked at 42.8. Will plan for CABG . Further plan and addendum to follow per Dr. Bernard. Exam (Progress Note) - Constitutional Vitals: Period Temp Pulse Resp BP Sys/Mac Pulse Ox Last 24 Hr 97.6 F-98.8 F 55-77 18-20 90-123/52-65 95-98 Exam: General: Appears well with no apparent distress. Pleasant and cooperative. Appears comfortable. HEENT: PERRL, normocephalic, atraumatic. Mucous membranes moist. No jaundice noted. Conjunctiva moist and clear, sclerae anicteric Neck: No JVD/HJR, no thyromegaly or lymphadenopathy noted. Cardiac: Regular rate and rhythm. No murmur rub or gallop. Lungs: Clear to auscultation without accessory muscle use to assist the respiratory pattern. Not requiring oxygen. Abdomen: Soft, bowel sounds normoactive. Nontender and nondistended. No abdominal bruit or thrill noted. No masses noted. Extremities: No clubbing, cyanosis noted. No edema noted. Upper extremity pulses 2+. Lower extremity pulses 2+. Capillary refill less than 3 seconds. Skin: No unusual lesions or rashes. No skin breakdown appreciated. Neuro: Awake, alert and oriented 3. Moves all extremities well without hemiparesis or paralysis. No essential tremor is appreciated. Result/EKG - Labs CBC & BMP: 03/03/17 04:04 03/03/17 04:04 Lab Results: I have reviewed the past 24 hour labs Labs: Laboratory Results - last 24 hr 03/03/17 03/03/17 04:04 04:04 WBC 6.3 RBC 3.89 Hgb 11.8 L Hct 36.1 L MCV 92.8 MCH 30 MCHC 32.7 RDW 13.6 Plt Count 180 MPV 11.5 Neut % (Auto) 61.5 Lymph % (Auto) 22.3 [place] % (Auto) 11.1 Eos % (Auto) 4.3 Baso % (Auto) 0.3 Neut # (Auto) 3.9 Lymph # (Auto) 1.4 [place] # (Auto) 0.7 Eos # (Auto) 0.3 Baso # (Auto) 0.0 Immature Gran % 0.5 Nucleated RBC % 0.0 Immature Gran # 0.03 Nucleated RBCs # 0.00 Sodium 143 Potassium 4.6 Chloride 108 H Carbon Dioxide 26 Anion Gap 13.6 BUN 26 H Creatinine 1.30 GFR Calculation 63 BUN/Creatinine Ratio 20.00 Glucose 92 Calculated Osmolality 289.0 Calcium 8.1 L Magnesium 2.4 Quality Measures - VTE Contraindication to Pharmacological VTE Prophylaxis: Already on Theraputic Agent , No Prophylaxis Needed Specialty Discharge - Follow Up or Referrals
[2017-03-03] MEDS: CHLORHEXIDINE 0.12% ORAL RINSE 60 ML BOTTLE SWISH/SPIT SCH ×2 (21:12→21:51)
[2017-03-03] MEDS: ATORVASTATIN 80 MG TABLET PO SCH (21:12)
[2017-03-03] MEDS: DOCUSATE SODIUM 100 MG CAPSULE PO PRN (21:19)
[2017-03-04 04:50] LABS: Allen Test Positive; Pt O2 Delivery Device Room Air
[2017-03-04 04:51] LABS: ABG Base Excess 0.5 MMOL/L (-2.5-2.5); ABG HCO3 24.8 MMOL/L (20-26); ABG Oxygen Saturation 95.4 % (95-100); ABG PCO2 38.9 MM HG (35-48); ABG PH 7.423 (7.35-7.45); ABG PO2 77.7 MM HG (80-95)
[2017-03-04] MEDS: ENOXAPARIN 100 MG/ML SYRINGE SUBCUT SCH ×2 (05:09→18:30)
[2017-03-04 05:49] LABS: Basophils % 0.3 % (0.0-0.8); Eosinophils # 0.2 10*3/uL (0.0-0.87); Eosinophils % 3.2 % (0.00-10.9); Hematocrit 34.9 VOL% (42.0-52.0); Hemoglobin 11.7 GM/DL (14.0-18.0); Immature Granulocytes % 0.7 %; Immature Granulocytes Absolute 0.04 #; Lymphocytes # 1.2 10*3/uL (1.4-4.0); Lymphocytes % 19.9 % (21.2-54.2); Mean Corpuscular HGB Conc 33.5 GM/DL (32-36); Mean Corpuscular Hemoglobin 31 PG (27-34); Mean Corpuscular Volume 91.1 FL (87-102); Mean Platelet Volume 11.1 FL (9.6-12.0); Monocytes # 0.6 10*3/uL (0.11-0.8); Monocytes % 9.5 % (1.7-12.7); Neutrophils % 66.4 % (38.7-73.9); Platelet Count 178 T/CUMM (130-400); Red Blood Count 3.83 MC/CUMM (3.8-5.5); Red Cell Distribution Width 13.4 % (9.3-17.3)
--- NOTE | 2017-03-04 06:20 | Cardiothoracic Progress Note ---
Cardiothoracic Subjective Interval history: Patient ready for surgery tomorrow. He has been off antiplatelet agents for 6 days. Exam (Progress Note) - Constitutional Vitals: Period Temp Pulse Resp BP Sys/Mac Pulse Ox Last 24 Hr 97.6 F-97.9 F 55-75 16-20 99-128/63-70 94-98 Result/EKG - Labs CBC & BMP: 03/04/17 05:33 03/03/17 04:04 Labs: Laboratory Results - last 24 hr 03/03/17 03/04/17 03/04/17 04:04 04:35 05:33 WBC 6.3 6.0 RBC 3.89 3.83 Hgb 11.8 L 11.7 L Hct 36.1 L 34.9 L MCV 92.8 91.1 MCH 30 31 MCHC 32.7 33.5 RDW 13.6 13.4 Plt Count 180 178 MPV 11.5 11.1 Neut % (Auto) 61.5 66.4 Lymph % (Auto) 22.3 19.9 L [place] % (Auto) 11.1 9.5 Eos % (Auto) 4.3 3.2 Baso % (Auto) 0.3 0.3 Neut # (Auto) 3.9 4.0 Lymph # (Auto) 1.4 1.2 L [place] # (Auto) 0.7 0.6 Eos # (Auto) 0.3 0.2 Baso # (Auto) 0.0 0.0 Immature Gran % 0.5 0.7 Nucleated RBC % 0.0 0.0 Immature Gran # 0.03 0.04 Nucleated RBCs # 0.00 0.00 ABG pH 7.423 ABG pCO2 38.9 ABG pO2 77.7 L ABG HCO3 24.8 ABG Total CO2 26.0 ABG O2 Saturation 95.4 ABG Base Excess 0.5 FiO2 21.00 Crossmatch 03/04/17 05:33 WBC RBC Hgb Hct MCV MCH MCHC RDW Plt Count MPV Neut % (Auto) Lymph % (Auto) [place] % (Auto) Eos % (Auto) Baso % (Auto) Neut # (Auto) Lymph # (Auto) [place] # (Auto) Eos # (Auto) Baso # (Auto) Immature Gran % Nucleated RBC % Immature Gran # Nucleated RBCs # ABG pH ABG pCO2 ABG pO2 ABG HCO3 ABG Total CO2 ABG O2 Saturation ABG Base Excess FiO2 Crossmatch See Detail Quality Measures - VTE Contraindication to Pharmacological VTE Prophylaxis: Already on Theraputic Agent , No Prophylaxis Needed Specialty Discharge - Follow Up or Referrals
[2017-03-04 06:26] LABS: Bilirubin,Total 1.1 MG/DL (0.2-1.0); Calcium 7.9 MG/DL (8.5-10.1); Magnesium 2.5 MG/DL (1.8-2.4); Potassium 4.7 MMOL/L (3.5-5.1); Total Protein 5.8 G/DL (6.4-8.3)
[2017-03-04] MEDS ORDERED: CEFUROXIME INJ 1,500 MG in SODIUM CHLORIDE 0.9% 100 ML IV ONE (06:30)
[2017-03-04 06:34] LABS: Magnesium 2.4 MG/DL (1.8-2.4); Potassium 4.6 MMOL/L (3.5-5.1)
--- NOTE | 2017-03-04 08:02 | EKG Report ---
Stationary ECG Study [facility] Test Date: 03/04/2017 8:01:35 AM Pat Name: JOSR VO Department: Room: 294 Gender: M [employer] Assistant: GISELA : 1930 Requested by: Varun Ortiz Order Number: [id number] Christine MD: RYAN CASANOVA Intervals [place] Rate: 67 P: 77 VT: 242 QRS: -71 QRSD: 156 T: 8 QT: 460 QTc: 475 Interpretive Statements SINUS RHYTHM WITH PROLONGED VT INTERVAL WITH OCCASIONAL SUPRAVENTRICULAR PREMATURE COMPLEXES RIGHT BUNDLE BRANCH BLOCK LEFT ANTERIOR FASCICULAR BLOCK INTERPRETATION BASED ON A DEFAULT AGE OF 40 YEARS Electronically Signed On 03-04-17 17:09:57 CDT by RYAN CASANOVA [email or web address]
[2017-03-04] MEDS ORDERED: POLYETHYLENE GLYCOL POWDER 17 GM PACK PO SCH (09:00)
[2017-03-04] MEDS ORDERED: PSYLLIUM POWDER 3.7 GM/PACK PO SCH (09:00)
[2017-03-04] MEDS: CHLORHEXIDINE 0.12% ORAL RINSE 60 ML BOTTLE SWISH/SPIT SCH ×3 (09:58→21:53)
[2017-03-04] MEDS: ISOSORBIDE MONONITRATE 30 MG TABLET PO SCH (09:59)
[2017-03-04] MEDS: PANTOPRAZOLE 40 MG TABLET PO SCH (09:59)
[2017-03-04] MEDS: ASPIRIN EC 81 MG TABLET PO SCH (09:59)
[2017-03-04] MEDS: LISINOPRIL 2.5 MG TABLET PO SCH (09:59)
[2017-03-04] MEDS: CARVEDILOL 3.125 MG TABLET PO SCH ×2 (09:59→21:51)
--- NOTE | 2017-03-04 11:07 | Cardiology Progress Note ---
<Linda Yeh - Last Filed: 03/04/17 10:58> Assessment and Plan (1) Coronary artery disease Status: Chronic Assessment and plan: See plan of care listed below. Current Visit: Yes Qualifiers: Coronary Disease-Associated Artery/Lesion type: [place] artery [place] vs. transplanted heart: [place] heart Associated angina: angina presence unspecified Qualified Code(s): I25.10 - Atherosclerotic heart disease of [place] coronary artery without angina pectoris (2) Non-ST elevated myocardial infarction Status: Acute Assessment and plan: See plan of care listed below. Current Visit: Yes (3) Abdominal aortic aneurysm Status: Acute Current Visit: Yes (4) Dyslipidemia Status: Chronic Assessment and plan: See plan of care listed below. Current Visit: Yes (5) Osteoarthritis Status: Chronic Assessment and plan: See plan of care listed below. Current Visit: Yes Cardiology - PN: Subj Interval history: Radiologist Physician: New to cardiology (Dr. Ferrari) SUMMARY: Mr. Chavez, 86-year-old male presented to [facility] February 27, 2017 with non-ST elevation MD. He has no previous major medical diagnoses other than osteoarthritis. Subsequently, patient underwent heart catheterization per Dr. Ferrari with the following impressions noted: Assessment: 1. Severe three-vessel coronary disease as described above 2. Ischemic cardiomyopathy, decompensated with systolic and diastolic dysfunction 3. Mitral regurgitation 4. Infrarenal abdominal aortic aneurysm PLAN: Continue aspirin and Plavix. Anticipate coronary bypass grafting electively once clopidogrel has had time to dissipate sooner if the patient becomes hemodynamically unstable. Continue appropriate medical therapy. Cardiac rehabilitation consultation. February UPDATE: Post cardiac catheterization patient was transported back to the telemetry unit in stable condition. Dr. Greenwood was then consulted for possible bypass surgery. Dr. Greenwood plans for CABG tomorrow morning. Patient has now been off Plavix for 6 days. Patient was seen sitting up in chair in no acute distress, family at bedside. Currently, not requiring oxygen. He denies chest pain, heaviness and tightness. Also denies shortness of breath. Labs have been reviewed. Vital signs are stable. Patient is currently in normal sinus rhythm without any overt arrhythmias or ectopy noted. Patient is agreeable for surgery tomorrow morning. N.p.o. after midnight. Assessment/plan: 1. CORONARY ARTERY DISEASE - Clinically stable at present. Denies chest pain , heaviness and tightness. Plan for CABG morning with Dr. Greenwood. Patient has now been off Plavix for 6 days. Continue aspirin, beta-anna and lipid-lowering agent. Therapeutic dose of Lovenox will be discontinued this afternoon. N.p.o. after midnight. 2. DYSLIPIDEMIA - Continue current plan of care with lipid lowering agent. 3. OSTEOARTHRITIS - Clinically stable at present. 4. AAA - Clinically stable. 5. Non-STEMI MD - Troponin peaked at 42.8. Will plan for CABG . Further plan and addendum to follow per Dr. Bernard. Exam (Progress Note) - Constitutional Vitals: Period Temp Pulse Resp BP Sys/Mac Pulse Ox Last 24 Hr 97.6 F-97.9 F 65-75 16-20 101-138/63-76 94-98 Exam: General: Appears well with no apparent distress. Pleasant and cooperative. Appears comfortable. HEENT: PERRL, normocephalic, atraumatic. Mucous membranes moist. No jaundice noted. Conjunctiva moist and clear, sclerae anicteric Neck: No JVD/HJR, no thyromegaly or lymphadenopathy noted. Cardiac: Regular rate and rhythm. No murmur rub or gallop. Lungs: Clear to auscultation without accessory muscle use to assist the respiratory pattern. Not requiring oxygen. Abdomen: Soft, bowel sounds normoactive. Nontender and nondistended. No abdominal bruit or thrill noted. No masses noted. Extremities: No clubbing, cyanosis noted. No edema noted. Upper extremity pulses 2+. Lower extremity pulses 2+. Capillary refill less than 3 seconds. Skin: No unusual lesions or rashes. No skin breakdown appreciated. Neuro: Awake, alert and oriented 3. Moves all extremities well without hemiparesis or paralysis. No essential tremor is appreciated. Result/EKG - Labs CBC & BMP: 03/04/17 05:33 03/04/17 05:33 Lab Results: I have reviewed the past 24 hour labs Labs: Laboratory Results - last 24 hr 03/04/17 03/04/17 03/04/17 04:35 05:33 05:33 WBC 6.0 RBC 3.83 Hgb 11.7 L Hct 34.9 L MCV 91.1 MCH 31 MCHC 33.5 RDW 13.4 Plt Count 178 MPV 11.1 Neut % (Auto) 66.4 Lymph % (Auto) 19.9 L [place] % (Auto) 9.5 Eos % (Auto) 3.2 Baso % (Auto) 0.3 Neut # (Auto) 4.0 Lymph # (Auto) 1.2 L [place] # (Auto) 0.6 Eos # (Auto) 0.2 Baso # (Auto) 0.0 Immature Gran % 0.7 Nucleated RBC % 0.0 Immature Gran # 0.04 Nucleated RBCs # 0.00 ABG pH 7.423 ABG pCO2 38.9 ABG pO2 77.7 L ABG HCO3 24.8 ABG Total CO2 26.0 ABG O2 Saturation 95.4 ABG Base Excess 0.5 FiO2 21.00 Sodium 143 Potassium 4.6 Chloride 109 H Carbon Dioxide 26 Anion Gap 12.6 BUN 24 H Creatinine 1.20 GFR Calculation 70 BUN/Creatinine Ratio 20.00 Glucose 93 Calculated Osmolality 288.0 Calcium 8.0 L Magnesium 2.4 Total Bilirubin AST ALT Alkaline Phosphatase Total Protein Albumin Globulin Albumin/Globulin Ratio Blood Type Antibody Screen Crossmatch 03/04/17 03/04/17 03/04/17 05:33 05:33 Unknown WBC RBC Hgb Hct MCV MCH MCHC RDW Plt Count MPV Neut % (Auto) Lymph % (Auto) [place] % (Auto) Eos % (Auto) Baso % (Auto) Neut # (Auto) Lymph # (Auto) [place] # (Auto) Eos # (Auto) Baso # (Auto) Immature Gran % Nucleated RBC % Immature Gran # Nucleated RBCs # ABG pH ABG pCO2 ABG pO2 ABG HCO3 ABG Total CO2 ABG O2 Saturation ABG Base Excess FiO2 Sodium 143 Potassium 4.7 Chloride 110 H Carbon Dioxide 25 Anion Gap 12.7 BUN 25 H Creatinine 1.20 GFR Calculation 70 BUN/Creatinine Ratio 20.00 Glucose 95 Calculated Osmolality 288.0 Calcium 7.9 L Magnesium 2.5 H Total Bilirubin 1.10 H AST 36 ALT 33 Alkaline Phosphatase 67 Total Protein 5.8 L Albumin 3.0 L Globulin 2.8 Albumin/Globulin Ratio 1.0 L Blood Type A POSITIVE A POSITIVE Antibody Screen Negative Crossmatch See Detail Quality Measures - VTE Contraindication to Pharmacological VTE Prophylaxis: Already on Theraputic Agent , No Prophylaxis Needed Specialty Discharge - Follow Up or Referrals <Gallito Bernard - Last Filed: 03/04/17 23:55> Assessment and Plan (1) Constipation Status: Acute Current Visit: Yes Exam (Progress Note) - Constitutional Vitals: Period Temp Pulse Resp BP Sys/Mac Pulse Ox Last 24 Hr 97.6 F-98.7 F 65-76 16-20 105-138/51-76 94-98 Result/EKG - Labs CBC & BMP: 03/04/17 05:33 03/04/17 05:33 Labs: Laboratory Results - last 24 hr 03/04/17 03/04/17 03/04/17 04:35 05:33 05:33 WBC 6.0 RBC 3.83 Hgb 11.7 L Hct 34.9 L MCV 91.1 MCH 31 MCHC 33.5 RDW 13.4 Plt Count 178 MPV 11.1 Neut % (Auto) 66.4 Lymph % (Auto) 19.9 L [place] % (Auto) 9.5 Eos % (Auto) 3.2 Baso % (Auto) 0.3 Neut # (Auto) 4.0 Lymph # (Auto) 1.2 L [place] # (Auto) 0.6 Eos # (Auto) 0.2 Baso # (Auto) 0.0 Immature Gran % 0.7 Nucleated RBC % 0.0 Immature Gran # 0.04 Nucleated RBCs # 0.00 ABG pH 7.423 ABG pCO2 38.9 ABG pO2 77.7 L ABG HCO3 24.8 ABG Total CO2 26.0 ABG O2 Saturation 95.4 ABG Base Excess 0.5 FiO2 21.00 Sodium 143 Potassium 4.6 Chloride 109 H Carbon Dioxide 26 Anion Gap 12.6 BUN 24 H Creatinine 1.20 GFR Calculation 70 BUN/Creatinine Ratio 20.00 Glucose 93 Calculated Osmolality 288.0 Calcium 8.0 L Magnesium 2.4 Total Bilirubin AST ALT Alkaline Phosphatase Total Protein Albumin Globulin Albumin/Globulin Ratio Blood Type Antibody Screen Crossmatch 03/04/17 03/04/17 03/04/17 05:33 05:33 Unknown WBC RBC Hgb Hct MCV MCH MCHC RDW Plt Count MPV Neut % (Auto) Lymph % (Auto) [place] % (Auto) Eos % (Auto) Baso % (Auto) Neut # (Auto) Lymph # (Auto) [place] # (Auto) Eos # (Auto) Baso # (Auto) Immature Gran % Nucleated RBC % Immature Gran # Nucleated RBCs # ABG pH ABG pCO2 ABG pO2 ABG HCO3 ABG Total CO2 ABG O2 Saturation ABG Base Excess FiO2 Sodium 143 Potassium 4.7 Chloride 110 H Carbon Dioxide 25 Anion Gap 12.7 BUN 25 H Creatinine 1.20 GFR Calculation 70 BUN/Creatinine Ratio 20.00 Glucose 95 Calculated Osmolality 288.0 Calcium 7.9 L Magnesium 2.5 H Total Bilirubin 1.10 H AST 36 ALT 33 Alkaline Phosphatase 67 Total Protein 5.8 L Albumin 3.0 L Globulin 2.8 Albumin/Globulin Ratio 1.0 L Blood Type A POSITIVE A POSITIVE Antibody Screen Negative Crossmatch See Detail
[2017-03-04] MEDS: CHLORHEXIDINE 4% SOLN 118 ML BOTTLE TOP SCH ×4 (11:11→21:52)
[2017-03-04] MEDS: SODIUM CHLORIDE 0.9% 1,000 ML IV SCH ×2 (11:51→11:52)
[2017-03-04] MEDS: ATORVASTATIN 80 MG TABLET PO SCH (21:51)
[2017-03-04] MEDS: MORPHINE 2 MG/1 ML SYRINGE IV PRN (23:56)
[2017-03-05] MEDS: CHLORHEXIDINE 4% SOLN 118 ML BOTTLE TOP SCH ×2 (04:34)
[2017-03-05] MEDS ORDERED: FAMOTIDINE 20 MG TABLET PO ONE (05:30)
[2017-03-05] MEDS ORDERED: PANTOPRAZOLE 40 MG TABLET PO SCH (05:30)
[2017-03-05] MEDS ORDERED: PAPAVERINE 60 MG/2 ML VIAL ONE (05:39)
[2017-03-05] MEDS ORDERED: TISSUE ADHESIVE 1 EACH APPLICATOR TOP ONE ×2 (05:39→08:28)
[2017-03-05] MEDS ORDERED: VANCOMYCIN 1,000 MG VIAL ONE (05:39)
[2017-03-05] MEDS: CARVEDILOL 3.125 MG TABLET PO SCH (05:48)
[2017-03-05 05:57] LABS: Basophils % 0.2 % (0.0-0.8); Eosinophils % 0.7 % (0.00-10.9); Hematocrit 37.3 VOL% (42.0-52.0); Hemoglobin 12.4 GM/DL (14.0-18.0); Immature Granulocytes % 0.5 %; Immature Granulocytes Absolute 0.02 #; Lymphocytes # 0.3 10*3/uL (1.4-4.0); Lymphocytes % 6.8 % (21.2-54.2); Mean Corpuscular HGB Conc 33.2 GM/DL (32-36); Mean Corpuscular Hemoglobin 30 PG (27-34); Mean Platelet Volume 11.5 FL (9.6-12.0); Monocytes # 0.3 10*3/uL (0.11-0.8); Monocytes % 6.1 % (1.7-12.7); Neutrophils # 3.8 10*3/uL (1.4-7.4); Neutrophils % 85.7 % (38.7-73.9); Platelet Count 139 T/CUMM (130-400); Red Cell Distribution Width 13.6 % (9.3-17.3); White Blood Count 4.4 T/CUMM (4-12)
[2017-03-05] MEDS ORDERED: CEFUROXIME INJ 1,500 MG in SODIUM CHLORIDE 0.9% 100 ML IV ONE (06:00)
[2017-03-05] MEDS ORDERED: LORazepam 1 MG TABLET PO ONE (06:00)
[2017-03-05 06:27] LABS: Calcium 8.4 MG/DL (8.5-10.1); Magnesium 2.2 MG/DL (1.8-2.4); Osmolality,Calculated 286.1 MOS/KG (273-304); Potassium 4.7 MMOL/L (3.5-5.1)
[2017-03-05] MEDS ORDERED: NITROGLYCERIN 50 MG/250 ML BOTTLE IV ONE (06:50)
[2017-03-05] MEDS ORDERED: VECURONIUM 10 MG VIAL IV ONE (06:50)
[2017-03-05] MEDS ORDERED: CALCIUM CHLORIDE 1,000 MG/10 ML SYRINGE IV ONE ×2 (06:50→10:01)
[2017-03-05] MEDS ORDERED: PHENYLEPHRINE 20 MG/250 ML PREMIX IV ONE (06:50)
[2017-03-05] MEDS ORDERED: ETOMIDATE 20 MG/10 ML VIAL IV ONE (06:50)
[2017-03-05 07:45] LABS: ABG HCO3 23.6 MMOL/L (20-26); ABG Oxygen Saturation 99.7 % (95-100); ABG PCO2 38.9 MM HG (35-48); ABG PH 7.392 (7.35-7.45); ABG TCO2 21.2 MMOL/L (23-27); Glucose Heart Surgery 118 MG/DL (74-106); Hematocrit Heart Surgery 34.8 PERCENT (42-52); Hemoglobin Heart Surgery 11.3 G/DL (14.0-18.0); Ionized Calcium Arterial 1.14 MMOL/L (1.21-1.46); PCO2 Patient Temp Arterial 38.9 MMHG; PH Patient Temp Arterial 7.392; Patient Temperature 37 CELCIUS; Potassium Heart/CVR 4.2 MMOL/L (3.5-5.1); Sodium Heart/CVR 137 MMOL/L (135-145)
[2017-03-05 08:05] LABS: Apearance,Urine CLEAR (Clear); Bilirubin,Urine Negative (Negative); Blood, Urine Moderate mg/dL (Negative); Glucose,Urine (UA) Negative (Negative); Ketones,Urine Negative (Negative); Mucus,Urine Occasional /LPF (Occasional); Nitrite,Urine Negative (Negative); Protein,Urine Negative; RBC,Urine 33 /HPF (0-4); Urine Color Yellow (Yellow); Urine Specific Gravity 1.015 (1.001-1.035); Urine Urobilinogen < 2.0 EU/DL (0.2-1.0); WBC,Urine 1 /HPF (0-6)
[2017-03-05 09:09] LABS: Hematocrit Heart Surgery 25.4 PERCENT (42-52); Hemoglobin Heart Surgery 8.2 G/DL (14.0-18.0); PCO2 Patient Temp Venous 37.8 MM HG; PH Patient Temp Venous 7.419; PO2 Patient Temp Venous 37.9 MM HG; Potassium Heart/CVR 4.3 MMOL/L (3.5-5.1); VBG Base Excess 0.2 MEQ/L (0-4); VBG HCO3 24.4 MEQ/L (24-28); VBG Oxygen Saturation 79.2 %; VBG PCO2 41.6 MMHG (41-51); VBG PH 7.39; VBG PO2 43.5 MMHG (17-40)
[2017-03-05 09:40] LABS: Hematocrit Heart Surgery 25.9 PERCENT (42-52); Hemoglobin Heart Surgery 8.3 G/DL (14.0-18.0); PCO2 Patient Temp Venous 34.3 MM HG; PH Patient Temp Venous 7.454; PO2 Patient Temp Venous 38.1 MM HG; Potassium Heart/CVR 4.4 MMOL/L (3.5-5.1); VBG Base Excess 0.6 MEQ/L (0-4); VBG HCO3 24.7 MEQ/L (24-28); VBG Oxygen Saturation 83.7 %; VBG PCO2 39.6 MMHG (41-51); VBG PH 7.41; VBG PO2 46.9 MMHG (17-40)
[2017-03-05] MEDS ORDERED: PHENYLEPHRINE DRIP 40 MG/250 ML PREMIX IV ONE (09:59)
[2017-03-05] MEDS ORDERED: POTASSIUM CHLORIDE RIDER 100 ML IV ONE ×2 (10:01→10:39)
[2017-03-05] MEDS ORDERED: NITROPRUSSIDE 50 MG/2 ML VIAL ONE (10:01)
[2017-03-05] MEDS ORDERED: SODIUM BICARBONATE 50 MEQ/50 ML VIAL IV ONE ×2 (10:01→11:24)
[2017-03-05 10:14] LABS: Hematocrit Heart Surgery 27.6 PERCENT (42-52); Hemoglobin Heart Surgery 8.9 G/DL (14.0-18.0); PCO2 Patient Temp Venous 36.6 MM HG; PH Patient Temp Venous 7.421; PO2 Patient Temp Venous 38.6 MM HG; Potassium Heart/CVR 5.2 MMOL/L (3.5-5.1); VBG Base Excess -0.4 MEQ/L (0-4); VBG HCO3 23.8 MEQ/L (24-28); VBG Oxygen Saturation 77.8 %; VBG PCO2 38.4 MMHG (41-51); VBG PH 7.406; VBG PO2 41.3 MMHG (17-40)
[2017-03-05] MEDS ORDERED: ALBUMIN 5% 12.5 GM/250 ML VIAL IV ONE (10:33)
[2017-03-05] MEDS ORDERED: THROMBIN TOPICAL (RECOMBINANT) 5,000 UNIT VIAL TOP ONE (10:43)
[2017-03-05] MEDS ORDERED: EPINEPHrine 1 MG/10 ML SYRINGE ONE (10:59)
[2017-03-05] MEDS ORDERED: LIDOCAINE 100 MG/5 ML SYRINGE ONE (10:59)
[2017-03-05] MEDS ORDERED: DEXTROSE 5% KCL 20 MEQ 20 MEQ/1,000 ML BAG IV ONE (11:23)
[2017-03-05] MEDS ORDERED: HEPARIN 10,000 UNIT/10 ML VIAL ONE (11:24)
[2017-03-05] MEDS ORDERED: MAGNESIUM SULFATE 1 GM/2 ML VIAL ONE (11:24)
[2017-03-05] MEDS ORDERED: methylPREDNISolone SOD SUC 1,000 MG/8 ML VIAL ONE (11:24)
[2017-03-05] MEDS ORDERED: PROTAMINE SULFATE 250 MG/25 ML VIAL IV ONE (11:24)
[2017-03-05] MEDS ORDERED: MANNITOL 12.5 GM/50 ML VIAL IV ONE (11:24)
[2017-03-05] MEDS ORDERED: ALBUMIN 25% 25 GM/100 ML VIAL IV ONE (11:24)
[2017-03-05] MEDS ORDERED: PROTAMINE SULFATE 50 MG/5 ML VIAL IV ONE ×3 (11:25→15:54)
[2017-03-05] MEDS ORDERED: POTASSIUM CHLORIDE 20 MEQ/10 ML VIAL ONE (11:25)
[2017-03-05] MEDS ORDERED: FUROSEMIDE 20 MG/2 ML VIAL ONE (11:25)
[2017-03-05 11:45] LABS: ABG Base Excess -2.5 MMOL/L (-2.5-2.5); ABG HCO3 22.3 MMOL/L (20-26); ABG Oxygen Saturation 99.9 % (95-100); ABG PCO2 35.8 MM HG (35-48); ABG PH 7.396 (7.35-7.45); ABG TCO2 20.4 MMOL/L (23-27); Glucose Heart Surgery 216 MG/DL (74-106); Hematocrit Heart Surgery 25.7 PERCENT (42-52); Hemoglobin Heart Surgery 8.2 G/DL (14.0-18.0); Ionized Calcium Arterial 1.16 MMOL/L (1.21-1.46); PCO2 Patient Temp Arterial 35.8 MMHG; PH Patient Temp Arterial 7.396; Patient Temperature 37 CELCIUS; Potassium Heart/CVR 4.5 MMOL/L (3.5-5.1); Sodium Heart/CVR 132 MMOL/L (135-145)
[2017-03-05 12:56] LABS: ABG HCO3 23.6 MMOL/L (20-26); ABG PCO2 37.5 MM HG (35-48); ABG PH 7.406 (7.35-7.45); ABG TCO2 22.2 MMOL/L (23-27); Glucose Heart Surgery 218 MG/DL (74-106); Hematocrit Heart Surgery 22.2 PERCENT (42-52); Hemoglobin Heart Surgery 7.1 G/DL (14.0-18.0); Ionized Calcium Arterial 1.17 MMOL/L (1.21-1.46); PCO2 Patient Temp Arterial 37.5 MMHG; PH Patient Temp Arterial 7.406; Patient Temperature 37 CELCIUS; Potassium Heart/CVR 4.3 MMOL/L (3.5-5.1); Sodium Heart/CVR 135 MMOL/L (135-145)
[2017-03-05 13:45] LABS: ABG Base Excess -4.4 MMOL/L (-2.5-2.5); ABG HCO3 20.8 MMOL/L (20-26); ABG PCO2 43.5 MM HG (35-48); ABG PH 7.307 (7.35-7.45); ABG TCO2 20.2 MMOL/L (23-27); Glucose Heart Surgery 227 MG/DL (74-106); Hematocrit Heart Surgery 27.7 PERCENT (42-52); Hemoglobin Heart Surgery 8.9 G/DL (14.0-18.0); PCO2 Patient Temp Arterial 43.5 MMHG; PH Patient Temp Arterial 7.307; Patient Temperature 37 CELCIUS; Potassium Heart/CVR 4.6 MMOL/L (3.5-5.1); Sodium Heart/CVR 136 MMOL/L (135-145)
[2017-03-05] MEDS ORDERED: DOBUTamine 500 MG/250 ML PREMIX IV SCH (14:00)
[2017-03-05] MEDS ORDERED: INSULIN REGULAR 100 UNIT/ML IV PRN (14:22)
[2017-03-05] MEDS ORDERED: LACTATED RINGERS 250 ML IV PRN (14:22)
[2017-03-05] MEDS ORDERED: MORPHINE 10 MG/1 ML VIAL IV PRN (14:22)
[2017-03-05] MEDS ORDERED: MIDAZOLAM 10 MG/2 ML VIAL IV PRN (14:22)
[2017-03-05] MEDS ORDERED: ONDANSETRON 4 MG/2 ML VIAL IV PRN (14:22)
[2017-03-05] MEDS ORDERED: MAGNESIUM SULF RIDER 2 GM in PREMIX 1 EACH IV PRN (14:22)
[2017-03-05] MEDS ORDERED: DEXTROSE 50% 25 GM/50 ML VIAL IV PRN ×2 (14:22)
[2017-03-05] MEDS ORDERED: VECURONIUM 10 MG VIAL IV PRN ×2 (14:22)
[2017-03-05] MEDS ORDERED: ACETAMINOPHEN 650 MG SUPP RECTAL PRN (14:22)
[2017-03-05] MEDS ORDERED: CALCIUM CHLORIDE 1,000 MG/10 ML SYRINGE IV PRN (14:22)
[2017-03-05] MEDS ORDERED: MORPHINE 2 MG/1 ML SYRINGE IV PRN (14:22)
[2017-03-05] MEDS ORDERED: NITROPRUSSIDE 100 MG in DEXTROSE 5% 250 ML IV PRN (14:22)
[2017-03-05] MEDS ORDERED: MAGNESIUM SULF RIDER 4 GM in PREMIX 1 EACH IV PRN (14:22)
[2017-03-05] MEDS ORDERED: INSULIN REGULAR 100 UNIT/ML IV ONE (14:22)
[2017-03-05] MEDS ORDERED: MIDAZOLAM 10 MG/2 ML VIAL ONE ×2 (14:23→14:56)
--- NOTE | 2017-03-05 14:29 | Operative Note ---
Date of procedure: 03/05/17 Pre-op diagnosis: Coronary artery disease Post-op diagnosis: same Procedure: Procedure: Coronary bypass grafting 3 with saphenous vein graft to the anterior descending circumflex marginal and right coronary arteries. Findings: Patient is an 86-year-old man who presented with acute myocardial infarction and underwent urgent cardiac catheterization demonstrating critical three-vessel coronary disease patient was stabilized and referred for bypass surgery. Time of surgery left ventricular function was noted to be moderately impaired and saphenous vein grafts were placed to the anterior descending circumflex marginal and right coronary arteries. The anterior descending coronary was small and had significant disease at the site of anastomosis. The other 2 coronary arteries were of adequate size and relatively free of disease at the site of anastomosis. Patient tolerated the procedure well although there was significant bleeding post bypass. This required meticulous and extensive hemostasis. Once this was completed the patient was transferred to recovery. Procedure: Patient brought the operating room placed in the operating table in supine position. After satisfactory induction of general anesthesia the chest abdomen and legs were prepped and draped in sterile fashion. Greater saphenous vein was harvested from each lower leg and prepared to start an arterial graft. Incision in the leg were closed with 3-0 subcutaneous Monocryl and 3-0 subcuticular Monocryl. A standard sternotomy incision was made in the sternum was divided and the heart suspended in a pericardial cradle. Patient was prepared for cardiopulmonary bypass with systemic heparinization and then cardiopulmonary bypass was begun and the aorta was crossclamped and the heart arrested with cardioplegia solution injected into the aortic root. Heart was protected during the period of crossclamping with topical saline slush. Distal anastomoses were constructed as noted above and then the aorta was unclamped and proximal anastomoses were constructed between the ascending aorta and the saphenous vein grafts. After these were completed patient was weaned from cardiopulmonary bypass without difficulty and heparin effect was reversed with protamine and decannulation carried out in the usual fashion with a defects in the ascending aorta and right atrium closed with 3-0 Prolene. Operative field was inspected for hemostasis and when this was considered adequate the incision was closed with interrupted stainless steel wire and the sternum 0 Monopril in the presternal fascia and 3-0 Monocryl in the skin. Sterile dressings were applied and 2 chest tubes were left in the anterior mediastinum and brought out through separate stab incisions. After the dressings were applied the patient was returned to recovery in satisfactory condition. Anesthesia: PRAKASH Surgeon / Physician: Varun Greenwood Estimated blood loss: other (Unable to determine because of cardiopulmonary bypass) Condition: stable Disposition: ICU Results - Labs CBC & BMP: 03/05/17 11:39 03/05/17 05:42 Discharge Plan - Discharge Medications No Action Meclizine [Antivert] 25 mg PO DAILY Aspirin EC Tab 81 mg PO DAILY - Follow Up or Referral - Forms/Instructions Instructions: Myocardial Infarction (GEN), Heart Healthy Diet (GEN), Coronary Artery Bypass Graft, [place] (GEN), Sternal Precautions (GEN)
[2017-03-05] MEDS ORDERED: INSULIN REGULAR DRIP 100 ML IV SCH (14:30)
[2017-03-05] MEDS ORDERED: SODIUM CHLORIDE 0.45% 1,000 ML IV SCH ×2 (14:30)
[2017-03-05 14:38] LABS: ABG Base Excess -4.7 MMOL/L (-2.5-2.5); ABG HCO3 20.5 MMOL/L (20-26); ABG Oxygen Saturation 99.8 % (95-100); ABG PCO2 45.5 MM HG (35-48); ABG PH 7.286 (7.35-7.45); ABG TCO2 20.7 MMOL/L (23-27); Glucose Heart Surgery 224 MG/DL (74-106); Hematocrit Heart Surgery 22.3 PERCENT (42-52); Hemoglobin Heart Surgery 7.1 G/DL (14.0-18.0); Potassium Heart/CVR 4.3 MMOL/L (3.5-5.1)
[2017-03-05 14:41] LABS: Basophils % 0.1 % (0.0-0.8); Eosinophils % 0.1 % (0.00-10.9); Hematocrit 21.2 VOL% (42.0-52.0); Hemoglobin 7.1 GM/DL (14.0-18.0); Immature Granulocytes Absolute 0.09 #; Lymphocytes # 0.7 10*3/uL (1.4-4.0); Lymphocytes % 7.6 % (21.2-54.2); Mean Corpuscular HGB Conc 33.5 GM/DL (32-36); Mean Corpuscular Hemoglobin 30 PG (27-34); Mean Corpuscular Volume 89.1 FL (87-102); Monocytes # 0.4 10*3/uL (0.11-0.8); Monocytes % 4.6 % (1.7-12.7); Neutrophils # 7.6 10*3/uL (1.4-7.4); Neutrophils % 86.6 % (38.7-73.9); Platelet Count 122 T/CUMM (130-400); Red Blood Count 2.38 MC/CUMM (3.8-5.5); Red Cell Distribution Width 14.6 % (9.3-17.3); White Blood Count 8.8 T/CUMM (4-12)
[2017-03-05 14:53] LABS: INR 1.4; PT Patient Result 14.7 SECS; Partial Thromboplastin Time 37.3 SECS (0-40)
[2017-03-05] MEDS ORDERED: SEVOFLURANE 1 UNIT/15 MINUTE INH ONE (14:55)
[2017-03-05] MEDS ORDERED: LACTATED RINGERS 1,000 ML IV ONE (14:56)
[2017-03-05] MEDS ORDERED: SODIUM CHLORIDE 0.9% 250 ML IV ONE (14:56)
[2017-03-05] MEDS ORDERED: SUFentanil 250 MCG/5 ML AMP ONE (14:56)
[2017-03-05] MEDS ORDERED: SODIUM CHLORIDE 0.9% 2,000 ML IV ONE (14:56)
[2017-03-05] MEDS: LACTATED RINGERS 1,000 ML IV PRN ×4 (15:00→23:29)
[2017-03-05 15:13] LABS: Albumin 1.8 G/DL (3.4-5.0); Calcium 8.1 MG/DL (8.5-10.1); Osmolality,Calculated 297.7 MOS/KG (273-304); Potassium 4.6 MMOL/L (3.5-5.1)
[2017-03-05 15:24] LABS: CKMB % 7.4 %
--- NOTE | 2017-03-05 15:58 | Cardiology Progress Note ---
Assessment and Plan (1) Coronary artery disease Status: Chronic Assessment and plan: See plan of care listed below. Current Visit: Yes Qualifiers: Coronary Disease-Associated Artery/Lesion type: [place] artery [place] vs. transplanted heart: [place] heart Associated angina: angina presence unspecified Qualified Code(s): I25.10 - Atherosclerotic heart disease of [place] coronary artery without angina pectoris (2) Non-ST elevated myocardial infarction Status: Acute Assessment and plan: See plan of care listed below. Current Visit: Yes (3) Abdominal aortic aneurysm Status: Acute Current Visit: Yes (4) Dyslipidemia Status: Chronic Assessment and plan: See plan of care listed below. Current Visit: Yes (5) Osteoarthritis Status: Chronic Assessment and plan: See plan of care listed below. Current Visit: Yes Cardiology - PN: Subj Interval history: [employer]: New to cardiology (Dr. Ferrari) SUMMARY: Mr. Chavez, 86-year-old male presented to [facility] February 27, 2017 with non-ST elevation MS. He has no previous major medical diagnoses other than osteoarthritis. Subsequently, patient underwent heart catheterization per Dr. Ferrari with the following impressions noted: Assessment: 1. Severe three-vessel coronary disease as described above 2. Ischemic cardiomyopathy, decompensated with systolic and diastolic dysfunction 3. Mitral regurgitation 4. Infrarenal abdominal aortic aneurysm PLAN: Consult Dr. Greenwood. Dr. Greenwood plans for CABG , March 05, 2017 once Plavix has been discontinued for 7 days. February UPDATE: Patient was seen and examined in the CVR. He underwent coronary bypass grafting 3 with saphenous vein graft to LAD, saphenous vein graft to circumflex and saphenous vein graft to RCA earlier today. Patient tolerated the procedure well although there was significant bleeding post bypass, requiring meticulous and extensive hemostasis. Once hemostasis was achieved, patient was then transferred to the CVR in stable condition. Patient is now sedated and ventilated. Currently pacing. Patient is hemodynamically stable, requiring Radames-Synephrine currently. 2 chest tubes intact. Midsternal chest incision dressing is clean dry and intact without drainage noted. Blood pressure is stable, will continue with vasopressors at this time. Patient has been without arrhythmias. Further plan and addendum to follow per Dr. Bernard. Assessment/plan: 1. CORONARY ARTERY DISEASE - Patient is now status post revascularization with saphenous vein graft to LAD, saphenous vein graft to circumflex and saphenous vein graft to RCA. Patient is stable postoperatively. Continue current plan of care. 2. DYSLIPIDEMIA - Continue current plan of care with lipid lowering agent. 3. OSTEOARTHRITIS - Clinically stable at present. 4. AAA - Clinically stable. 5. Non-STEMI MS - Resolved. Now status post revascularization. Further plan and addendum to follow per Dr. Bernard. Exam (Progress Note) - Constitutional Vitals: Period Temp Pulse Resp BP Sys/Mac Pulse Ox Last 24 Hr 98 F-98.9 F 74-106 10-18 87-150/51-86 91-98 Exam: General: Sedated and ventilated in the CVR. Cardiac: Regular rate and rhythm. Pacing. No murmur or rub noted. Chest wall: Midsternal chest dressing clean dry and intact without drainage noted. Lungs: Clear to auscultation throughout. Currently ventilated. Abdomen: Soft, bowel sounds hypoactive. Extremities: No clubbing, cyanosis or edema noted. Neuro: Unable to fully assess as patient is sedated and ventilated. Result/EKG - Labs CBC & BMP: 03/05/17 14:35 03/05/17 14:35 Lab Results: I have reviewed the past 24 hour labs Labs: Laboratory Results - last 24 hr 03/04/17 03/05/17 03/05/17 05:33 05:07 05:42 WBC 4.4 RBC 4.10 Hgb 12.4 L Hct 37.3 L MCV 91.0 MCH 30 MCHC 33.2 RDW 13.6 Plt Count 139 D MPV 11.5 Neut % (Auto) 85.7 H Lymph % (Auto) 6.8 L [place] % (Auto) 6.1 Eos % (Auto) 0.7 Baso % (Auto) 0.2 Neut # (Auto) 3.8 Lymph # (Auto) 0.3 L [place] # (Auto) 0.3 Eos # (Auto) 0.0 Baso # (Auto) 0.0 Immature Gran % 0.5 Nucleated RBC % 0.0 Immature Gran # 0.02 Nucleated RBCs # 0.00 INR PT Patient/Control Mix Circ Anticoag PTT Patient Temperature ABG pH ABG pH at Pt Temp ABG pCO2 ABG pCO2 at Pt Temp ABG pO2 ABG pO2 at Pt Temp ABG HCO3 ABG Total CO2 ABG O2 Saturation ABG Base Excess ABG Sodium VBG pH VBG pCO2 VBG pO2 VBG HCO3 VBG Total CO2 VBG O2 Saturation VBG Base Excess Hemoglobin Hematocrit Ionized Calcium FiO2 Sodium Potassium Chloride Carbon Dioxide Anion Gap BUN Creatinine GFR Calculation BUN/Creatinine Ratio Glucose POC Glucose 83 Calculated Osmolality Calcium Venous Ioniz Calcium Magnesium Total Bilirubin AST ALT Alkaline Phosphatase Total Creatine Kinase CK-MB (CK-2) CK and CKMB Interp Troponin I Total Protein Albumin Globulin Albumin/Globulin Ratio Urine Color Urine Appearance Urine pH Ur Specific [place] Urine Protein Urine Glucose (UA) Urine Ketones Urine Blood Urine Nitrate Urine Bilirubin Urine Urobilinogen Urine Leukocytes Urine RBC Urine WBC Urine Mucus Ur Culture Indicated? Blood Type A POSITIVE Antibody Screen Negative Crossmatch See Detail Blood Bank Comment 03/05/17 03/05/17 03/05/17 05:42 07:21 07:43 WBC RBC Hgb Hct MCV MCH MCHC RDW Plt Count 99 L D MPV Neut % (Auto) Lymph % (Auto) [place] % (Auto) Eos % (Auto) Baso % (Auto) Neut # (Auto) Lymph # (Auto) [place] # (Auto) Eos # (Auto) Baso # (Auto) Immature Gran % Nucleated RBC % Immature Gran # Nucleated RBCs # INR PT Patient/Control Mix Circ Anticoag PTT Patient Temperature ABG pH ABG pH at Pt Temp ABG pCO2 ABG pCO2 at Pt Temp ABG pO2 ABG pO2 at Pt Temp ABG HCO3 ABG Total CO2 ABG O2 Saturation ABG Base Excess ABG Sodium VBG pH VBG pCO2 VBG pO2 VBG HCO3 VBG Total CO2 VBG O2 Saturation VBG Base Excess Hemoglobin Hematocrit Ionized Calcium FiO2 Sodium 142 Potassium 4.7 Chloride 109 H Carbon Dioxide 25 Anion Gap 12.7 BUN 24 H Creatinine 1.20 GFR Calculation 70 BUN/Creatinine Ratio 20.00 Glucose 104 POC Glucose Calculated Osmolality 286.1 Calcium 8.4 L Venous Ioniz Calcium Magnesium 2.2 Total Bilirubin AST ALT Alkaline Phosphatase Total Creatine Kinase CK-MB (CK-2) CK and CKMB Interp Troponin I Total Protein Albumin Globulin Albumin/Globulin Ratio Urine Color Yellow Urine Appearance Clear Urine pH 6.0 Ur Specific [place] 1.015 Urine Protein Negative Urine Glucose (UA) Negative Urine Ketones Negative Urine Blood Moderate Urine Nitrate Negative Urine Bilirubin Negative Urine Urobilinogen < 2.0 H Urine Leukocytes Negative Urine RBC 33 Urine WBC 1 Urine Mucus Occasional Ur Culture Indicated? Not indicated Blood Type Antibody Screen Crossmatch Blood Bank Comment 03/05/17 03/05/17 03/05/17 07:43 09:05 09:35 WBC RBC Hgb Hct MCV MCH MCHC RDW Plt Count MPV Neut % (Auto) Lymph % (Auto) [place] % (Auto) Eos % (Auto) Baso % (Auto) Neut # (Auto) Lymph # (Auto) [place] # (Auto) Eos # (Auto) Baso # (Auto) Immature Gran % Nucleated RBC % Immature Gran # Nucleated RBCs # INR PT Patient/Control Mix Circ Anticoag PTT Patient Temperature 37 35 34 ABG pH 7.392 ABG pH at Pt Temp 7.392 7.419 7.454 ABG pCO2 38.9 ABG pCO2 at Pt Temp 38.9 37.8 34.3 ABG pO2 362.0 H ABG pO2 at Pt Temp 362.0 37.9 38.1 ABG HCO3 23.6 ABG Total CO2 21.2 L ABG O2 Saturation 99.7 ABG Base Excess -1.0 ABG Sodium 137 134 L 133 L VBG pH 7.390 7.410 VBG pCO2 41.6 39.6 L VBG pO2 43.5 H 46.9 H VBG HCO3 24.4 24.7 VBG Total CO2 23.6 23.4 VBG O2 Saturation 79.2 83.7 VBG Base Excess 0.2 0.6 Hemoglobin 11.3 L 8.2 L D 8.3 L Hematocrit 34.8 L 25.4 L 25.9 L Ionized Calcium 1.14 L FiO2 80.00 80.00 Sodium Potassium 4.2 4.3 4.4 Chloride Carbon Dioxide Anion Gap BUN Creatinine GFR Calculation BUN/Creatinine Ratio Glucose 118 H 179 H 227 H POC Glucose Calculated Osmolality Calcium Venous Ioniz Calcium 0.95 L 0.99 L Magnesium Total Bilirubin AST ALT Alkaline Phosphatase Total Creatine Kinase CK-MB (CK-2) CK and CKMB Interp Troponin I Total Protein Albumin Globulin Albumin/Globulin Ratio Urine Color Urine Appearance Urine pH Ur Specific [place] Urine Protein Urine Glucose (UA) Urine Ketones Urine Blood Urine Nitrate Urine Bilirubin Urine Urobilinogen Urine Leukocytes Urine RBC Urine WBC Urine Mucus Ur Culture Indicated? Blood Type Antibody Screen Crossmatch Blood Bank Comment 03/05/17 03/05/17 03/05/17 10:05 11:39 11:39 WBC RBC Hgb Hct MCV MCH MCHC RDW Plt Count 90 L MPV Neut % (Auto) Lymph % (Auto) [place] % (Auto) Eos % (Auto) Baso % (Auto) Neut # (Auto) Lymph # (Auto) [place] # (Auto) Eos # (Auto) Baso # (Auto) Immature Gran % Nucleated RBC % Immature Gran # Nucleated RBCs # INR PT Patient/Control Mix Circ Anticoag PTT Patient Temperature 36 37 ABG pH 7.396 ABG pH at Pt Temp 7.421 7.396 ABG pCO2 35.8 ABG pCO2 at Pt Temp 36.6 35.8 ABG pO2 369.0 H ABG pO2 at Pt Temp 38.6 369.0 ABG HCO3 22.3 ABG Total CO2 20.4 L ABG O2 Saturation 99.9 ABG Base Excess -2.5 ABG Sodium 130 L 132 L VBG pH 7.406 VBG pCO2 38.4 L VBG pO2 41.3 H VBG HCO3 23.8 L VBG Total CO2 22.3 VBG O2 Saturation 77.8 VBG Base Excess -0.4 L Hemoglobin 8.9 L 8.2 L Hematocrit 27.6 L 25.7 L Ionized Calcium 1.16 L FiO2 80.00 Sodium Potassium 5.2 H 4.5 Chloride Carbon Dioxide Anion Gap BUN Creatinine GFR Calculation BUN/Creatinine Ratio Glucose 245 H 216 H POC Glucose Calculated Osmolality Calcium Venous Ioniz Calcium 0.98 L Magnesium Total Bilirubin AST ALT Alkaline Phosphatase Total Creatine Kinase CK-MB (CK-2) CK and CKMB Interp Troponin I Total Protein Albumin Globulin Albumin/Globulin Ratio Urine Color Urine Appearance Urine pH Ur Specific [place] Urine Protein Urine Glucose (UA) Urine Ketones Urine Blood Urine Nitrate Urine Bilirubin Urine Urobilinogen Urine Leukocytes Urine RBC Urine WBC Urine Mucus Ur Culture Indicated? Blood Type Antibody Screen Crossmatch Blood Bank Comment 03/05/17 03/05/17 03/05/17 12:52 13:40 14:22 WBC RBC Hgb Hct MCV MCH MCHC RDW Plt Count MPV Neut % (Auto) Lymph % (Auto) [place] % (Auto) Eos % (Auto) Baso % (Auto) Neut # (Auto) Lymph # (Auto) [place] # (Auto) Eos # (Auto) Baso # (Auto) Immature Gran % Nucleated RBC % Immature Gran # Nucleated RBCs # INR PT Patient/Control Mix Circ Anticoag PTT Patient Temperature 37 37 ABG pH 7.406 7.307 L 7.286 L ABG pH at Pt Temp 7.406 7.307 ABG pCO2 37.5 43.5 45.5 ABG pCO2 at Pt Temp 37.5 43.5 ABG pO2 332.0 H 443.0 H 297.0 H ABG pO2 at Pt Temp 332.0 443.0 ABG HCO3 23.6 20.8 20.5 ABG Total CO2 22.2 L 20.2 L 20.7 L ABG O2 Saturation 100.0 100.0 99.8 ABG Base Excess -1.0 -4.4 L -4.7 L ABG Sodium 135 136 VBG pH VBG pCO2 VBG pO2 VBG HCO3 VBG Total CO2 VBG O2 Saturation VBG Base Excess Hemoglobin 7.1 L 8.9 L D 7.1 L D Hematocrit 22.2 L 27.7 L 22.3 L Ionized Calcium 1.17 L 1.20 L FiO2 Sodium Potassium 4.3 4.6 4.3 Chloride Carbon Dioxide Anion Gap BUN Creatinine GFR Calculation BUN/Creatinine Ratio Glucose 218 H 227 H 224 H POC Glucose Calculated Osmolality Calcium Venous Ioniz Calcium Magnesium Total Bilirubin AST ALT Alkaline Phosphatase Total Creatine Kinase CK-MB (CK-2) CK and CKMB Interp Troponin I Total Protein Albumin Globulin Albumin/Globulin Ratio Urine Color Urine Appearance Urine pH Ur Specific [place] Urine Protein Urine Glucose (UA) Urine Ketones Urine Blood Urine Nitrate Urine Bilirubin Urine Urobilinogen Urine Leukocytes Urine RBC Urine WBC Urine Mucus Ur Culture Indicated? Blood Type Antibody Screen Crossmatch Blood Bank Comment 03/05/17 03/05/17 03/05/17 14:35 14:35 14:35 WBC 8.8 D RBC 2.38 L D Hgb 7.1 L D Hct 21.2 L MCV 89.1 MCH 30 MCHC 33.5 RDW 14.6 Plt Count 122 L D MPV 11.0 Neut % (Auto) 86.6 H Lymph % (Auto) 7.6 L [place] % (Auto) 4.6 Eos % (Auto) 0.1 Baso % (Auto) 0.1 Neut # (Auto) 7.6 H Lymph # (Auto) 0.7 L [place] # (Auto) 0.4 Eos # (Auto) 0.0 Baso # (Auto) 0.0 Immature Gran % 1.0 Nucleated RBC % 0.0 Immature Gran # 0.09 Nucleated RBCs # 0.00 INR 1.4 PT Patient/Control Mix 14.7 Circ Anticoag PTT 37.3 Patient Temperature ABG pH ABG pH at Pt Temp ABG pCO2 ABG pCO2 at Pt Temp ABG pO2 ABG pO2 at Pt Temp ABG HCO3 ABG Total CO2 ABG O2 Saturation ABG Base Excess ABG Sodium VBG pH VBG pCO2 VBG pO2 VBG HCO3 VBG Total CO2 VBG O2 Saturation VBG Base Excess Hemoglobin Hematocrit Ionized Calcium FiO2 Sodium Potassium Chloride Carbon Dioxide Anion Gap BUN Creatinine GFR Calculation BUN/Creatinine Ratio Glucose POC Glucose Calculated Osmolality Calcium Venous Ioniz Calcium Magnesium Total Bilirubin AST ALT Alkaline Phosphatase Total Creatine Kinase CK-MB (CK-2) CK and CKMB Interp Troponin I Total Protein Albumin Globulin Albumin/Globulin Ratio Urine Color Urine Appearance Urine pH Ur Specific [place] Urine Protein Urine Glucose (UA) Urine Ketones Urine Blood Urine Nitrate Urine Bilirubin Urine Urobilinogen Urine Leukocytes Urine RBC Urine WBC Urine Mucus Ur Culture Indicated? Blood Type Antibody Screen Crossmatch Blood Bank Comment 03/05/17 03/05/17 03/05/17 14:35 14:35 Unknown WBC RBC Hgb Hct MCV MCH MCHC RDW Plt Count MPV Neut % (Auto) Lymph % (Auto) [place] % (Auto) Eos % (Auto) Baso % (Auto) Neut # (Auto) Lymph # (Auto) [place] # (Auto) Eos # (Auto) Baso # (Auto) Immature Gran % Nucleated RBC % Immature Gran # Nucleated RBCs # INR PT Patient/Control Mix Circ Anticoag PTT Patient Temperature ABG pH ABG pH at Pt Temp ABG pCO2 ABG pCO2 at Pt Temp ABG pO2 ABG pO2 at Pt Temp ABG HCO3 ABG Total CO2 ABG O2 Saturation ABG Base Excess ABG Sodium VBG pH VBG pCO2 VBG pO2 VBG HCO3 VBG Total CO2 VBG O2 Saturation VBG Base Excess Hemoglobin Hematocrit Ionized Calcium FiO2 Sodium 145 Potassium 4.6 Chloride 113 H Carbon Dioxide 23 Anion Gap 13.6 BUN 22 H Creatinine 1.20 GFR Calculation 70 BUN/Creatinine Ratio 18.00 Glucose 221 H POC Glucose Calculated Osmolality 297.7 Calcium 8.1 L Venous Ioniz Calcium Magnesium 2.0 Total Bilirubin 0.90 L AST 56 H ALT 25 Alkaline Phosphatase 33 L Total Creatine Kinase 357 H D CK-MB (CK-2) 26.3 H CK and CKMB Interp 7.4 Troponin I 13.000 H Total Protein 3.0 L Albumin 1.8 L Globulin 1.2 L Albumin/Globulin Ratio 1.5 Urine Color Urine Appearance Urine pH Ur Specific [place] Urine Protein Urine Glucose (UA) Urine Ketones Urine Blood Urine Nitrate Urine Bilirubin Urine Urobilinogen Urine Leukocytes Urine RBC Urine WBC Urine Mucus Ur Culture Indicated? Blood Type Cancelled Antibody Screen Cancelled Crossmatch See Detail Blood Bank Comment Cancelled Quality Measures - VTE Contraindication to Pharmacological VTE Prophylaxis: Already on Theraputic Agent , No Prophylaxis Needed Specialty Discharge - Follow Up or Referrals
[2017-03-05 16:19] LABS: Band Neutrophils 2 % (0-10); Lymphocytes 5 % (20-55); Platelet Estimate Normal; Segmented Neutrophils 93 % (50-85); Total Cells Counted 100
[2017-03-05 16:34] LABS: ABG Base Excess -4.5 MMOL/L (-2.5-2.5); ABG HCO3 20.7 MMOL/L (20-26); ABG Oxygen Saturation 99.5 % (95-100); ABG PCO2 38.2 MM HG (35-48); ABG PH 7.344 (7.35-7.45); ABG TCO2 19.2 MMOL/L (23-27); Glucose Heart Surgery 234 MG/DL (74-106); Hematocrit Heart Surgery 28.6 PERCENT (42-52); Hemoglobin Heart Surgery 9.2 G/DL (14.0-18.0); Potassium Heart/CVR 4.4 MMOL/L (3.5-5.1)
--- NOTE | 2017-03-05 16:47 | XRay Report ---
History is central line placement Chest one view 03/05/2017 at 4:00 PM Comparison 02/27/2017 There is been interval median sternotomy. ET tube is been placed the tip at T4. The chest tubes are present bilaterally. No pneumothorax is identified. [place] catheter tip overlies the pulmonary artery. Right central line tip overlies the right atrium There is diffuse prominence of the thoracic aorta exacerbated by rotation. No consolidated infiltrate seen. Minimal stranding opacity in the left base present. Impression: Interval postoperative changes and support device placement detailed above PROCEDURE INTERPRETED AT [facility] DEPARTMENT OF RADIOLOGY Final Report Signed by: Dr. Chandni Vasquez
[2017-03-05] MEDS: KETOROLAC 30 MG/1 ML VIAL IV SCH ×2 (16:53→20:37)
[2017-03-05] MEDS: ALBUMIN 5% 12.5 GM in PREMIX 1 EACH IV PRN ×2 (17:00→18:12)
[2017-03-05] MEDS: PHENYLEPHRINE DRIP 40 MG/250 ML PREMIX IV PRN ×2 (17:17→23:56)
[2017-03-05 17:36] LABS: ABG Base Excess -4.3 MMOL/L (-2.5-2.5); ABG HCO3 20.9 MMOL/L (20-26); ABG Oxygen Saturation 99.5 % (95-100); ABG PCO2 37.1 MM HG (35-48); ABG PH 7.356 (7.35-7.45); Glucose Heart Surgery 187 MG/DL (74-106); Hematocrit Heart Surgery 29.7 PERCENT (42-52); Hemoglobin Heart Surgery 9.6 G/DL (14.0-18.0); Potassium Heart/CVR 3.8 MMOL/L (3.5-5.1)
[2017-03-05] MEDS: POTASSIUM CHLORIDE RIDER 20 MEQ in PREMIX 1 EACH IV PRN ×2 (17:43→22:18)
[2017-03-05] MEDS: POTASSIUM CHLORIDE RIDER 10 MEQ in PREMIX 1 EACH IV PRN (18:12)
[2017-03-05 18:45] LABS: ABG Base Excess -4.2 MMOL/L (-2.5-2.5); ABG HCO3 20.9 MMOL/L (20-26); ABG PCO2 36.2 MM HG (35-48); ABG PH 7.364 (7.35-7.45); ABG TCO2 19.1 MMOL/L (23-27); Glucose Heart Surgery 146 MG/DL (74-106); Hematocrit Heart Surgery 27.1 PERCENT (42-52); Hemoglobin Heart Surgery 8.7 G/DL (14.0-18.0); Potassium Heart/CVR 4.3 MMOL/L (3.5-5.1)
[2017-03-05] MEDS: MIDAZOLAM 2 MG/2 ML VIAL IV PRN ×2 (20:20→22:31)
[2017-03-05] MEDS ORDERED: CHLORHEXIDINE 0.12% ORAL RINSE 60 ML BOTTLE SWISH/SPIT SCH (21:00)
[2017-03-05 22:08] LABS: ABG HCO3 22.8 MMOL/L (20-26); ABG PCO2 36.4 MM HG (35-48); ABG PH 7.398 (7.35-7.45); ABG TCO2 20.6 MMOL/L (23-27); Glucose Heart Surgery 90 MG/DL (74-106); Hematocrit Heart Surgery 28.8 PERCENT (42-52); Hemoglobin Heart Surgery 9.3 G/DL (14.0-18.0); Potassium Heart/CVR 4.1 MMOL/L (3.5-5.1)
[2017-03-05] MEDS ORDERED: CEFUROXIME INJ 1,500 MG in SODIUM CHLORIDE 0.9% 100 ML IV SCH (22:23)
[2017-03-05 22:53] LABS: CKMB % 7.3 %
[2017-03-05 22:54] LABS: Troponin I Only 46.4 NG/ML (0.00-0.045)
[2017-03-06 01:07] LABS: ABG Base Excess -2.6 MMOL/L (-2.5-2.5); ABG HCO3 22.2 MMOL/L (20-26); ABG PCO2 37.6 MM HG (35-48); ABG PH 7.379 (7.35-7.45); ABG PO2 94.5 MM HG (80-95); ABG TCO2 20.2 MMOL/L (23-27); Glucose Heart Surgery 117 MG/DL (74-106); Hematocrit Heart Surgery 30.9 PERCENT (42-52); Potassium Heart/CVR 4.5 MMOL/L (3.5-5.1)
[2017-03-06] MEDS: ALBUMIN 5% 12.5 GM in PREMIX 1 EACH IV PRN (01:10)
[2017-03-06] MEDS: POTASSIUM CHLORIDE RIDER 10 MEQ in PREMIX 1 EACH IV PRN (01:14)
[2017-03-06] MEDS ORDERED: FUROSEMIDE 40 MG/4 ML VIAL IV ONE (01:17)
[2017-03-06] MEDS ORDERED: NOREPINEPHRINE 4 MG/4 ML VIAL IV ONE (02:37)
[2017-03-06] MEDS ORDERED: SODIUM CHLORIDE 0.9% 250 ML IV PRN (02:39)
[2017-03-06] MEDS ORDERED: NOREPINEPHRINE 8 MG in SODIUM CHLORIDE 0.9% 242 ML IV SCH (02:43)
--- NOTE | 2017-03-06 02:57 | Discharge Summary ---
Hospital Course - Hospital Course Hospital Course: History of present illness: Patient is a 86-year-old man who was admitted to the hospital about 1 week ago with an acute myocardial infarction. 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 Patient was felt to need coronary bypass surgery but was stabilized first and recovered from his initial event where the troponin which peaked in the mid 40s. He was scheduled for surgery approximately 1 week after his heart attack at the time of surgery three-vessel bypass grafting was performed. Of note was the observation that he had a fresh infarct in the distribution of right posterior lateral coronary artery which appeared to be very viable and from which there was some oozing which was controlled with buttress sutures. Immediately postoperatively patient stabilized with good cardiac output and was beginning to awaken. He had mild elevation in blood pressure with some agitation and subsequently had massive hemorrhage from his chest tubes. This exceeded anything with allowed blood replacement and patient rapidly deteriorated to cardiopulmonary arrest. Resuscitation including blood transfusion and fluid resuscitation was unsuccessful and the patient was pronounced at 2:48 AM on 03/06/2017. Specialty Discharge - Follow Up or Referrals Discharge Plan - Discharge Data Disposition: - Discharge Medications No Action Meclizine [Antivert] 25 mg PO DAILY Aspirin EC Tab 81 mg PO DAILY - Follow Up or Referral - Forms/Instructions Instructions: Myocardial Infarction (GEN), Heart Healthy Diet (GEN), Coronary Artery Bypass Graft, Food Science Technician (GEN), Sternal Precautions (GEN) Exam - Constitutional Vitals: Period Temp Pulse Resp BP Sys/Mac Pulse Ox Last 24 Hr 98 F-99.7 F 79-106 10-16 85-130/40-86 91-100 Discharge Results Procedures and tests throughout hospitalization: Pending Orders 03/04/17 05:33 Fresh Frozen Plasma IN AM Red Blood Cells Leuko Red IN AM Single Donor Platelets IN AM Type and Screen IN AM 03/05/17 Red Blood Cells Leuko Red Stat 03/05/17 15:00 MRSA Surveillence, Inf Control Routine 03/06/17 04:00 XR chest 1V portable IN AM Arterial Blood Gas CVR IN AM Bilirubin,Direct IN AM Comp Blood Count Auto Diff IN AM Comprehensive Metabolic Panel IN AM Magnesium IN AM 03/06/17 06:30 Troponin,CKMB & Ck Total Q8H 03/06/17 14:30 Troponin,CKMB & Ck Total Q8H 03/07/17 04:00 XR chest 1V portable IN AM Bilirubin,Direct IN AM Comp Blood Count Auto Diff IN AM Comprehensive Metabolic Panel IN AM Magnesium IN AM 03/08/17 04:00 XR chest 1V portable IN AM Bilirubin,Direct IN AM Comp Blood Count Auto Diff IN AM Comprehensive Metabolic Panel IN AM Magnesium IN AM Labs on day of discharge: Labs from last 24 hours 03/06/17 03/05/17 03/05/17 01:00 Unknown 22:00 WBC RBC Hgb Hct MCV MCH MCHC RDW Plt Count MPV Neut % (Auto) Lymph % (Auto) [place] % (Auto) Eos % (Auto) Baso % (Auto) Neut # (Auto) Lymph # (Auto) [place] # (Auto) Eos # (Auto) Baso # (Auto) Total Counted Immature Gran % Nucleated RBC % Immature Gran # Segmented Neutrophils Band Neutrophils Lymphocytes Nucleated RBCs # Platelet Estimate INR PT Patient/Control Mix Circ Anticoag PTT Patient Temperature ABG pH 7.379 7.398 ABG pH at Pt Temp ABG pCO2 37.6 36.4 ABG pCO2 at Pt Temp ABG pO2 94.5 126.0 H ABG pO2 at Pt Temp ABG HCO3 22.2 22.8 ABG Total CO2 20.2 L 20.6 L ABG O2 Saturation 98.0 99.0 ABG Base Excess -2.6 L -2.0 ABG Sodium VBG pH VBG pCO2 VBG pO2 VBG HCO3 VBG Total CO2 VBG O2 Saturation VBG Base Excess Hemoglobin 10.0 L 9.3 L Hematocrit 30.9 L 28.8 L Ionized Calcium FiO2 Sodium Potassium 4.5 4.1 Chloride Carbon Dioxide Anion Gap BUN Creatinine GFR Calculation BUN/Creatinine Ratio Glucose 117 H 90 POC Glucose Calculated Osmolality Calcium Venous Ioniz Calcium Magnesium Total Bilirubin AST ALT Alkaline Phosphatase Total Creatine Kinase CK-MB (CK-2) CK and CKMB Interp Troponin I Total Protein Albumin Globulin Albumin/Globulin Ratio Urine Color Urine Appearance Urine pH Ur Specific [place] Urine Protein Urine Glucose (UA) Urine Ketones Urine Blood Urine Nitrate Urine Bilirubin Urine Urobilinogen Urine Leukocytes Urine RBC Urine WBC Urine Mucus Ur Culture Indicated? Blood Type Cancelled Antibody Screen Cancelled Crossmatch See Detail Blood Bank Comment Cancelled 03/05/17 03/05/17 03/05/17 22:00 19:35 18:40 WBC RBC Hgb Hct MCV MCH MCHC RDW Plt Count MPV Neut % (Auto) Lymph % (Auto) [place] % (Auto) Eos % (Auto) Baso % (Auto) Neut # (Auto) Lymph # (Auto) [place] # (Auto) Eos # (Auto) Baso # (Auto) Total Counted Immature Gran % Nucleated RBC % Immature Gran # Segmented Neutrophils Band Neutrophils Lymphocytes Nucleated RBCs # Platelet Estimate INR PT Patient/Control Mix Circ Anticoag PTT Patient Temperature ABG pH 7.364 ABG pH at Pt Temp ABG pCO2 36.2 ABG pCO2 at Pt Temp ABG pO2 137.0 H ABG pO2 at Pt Temp ABG HCO3 20.9 ABG Total CO2 19.1 L ABG O2 Saturation 99.0 ABG Base Excess -4.2 L ABG Sodium VBG pH VBG pCO2 VBG pO2 VBG HCO3 VBG Total CO2 VBG O2 Saturation VBG Base Excess Hemoglobin 8.7 L Hematocrit 27.1 L Ionized Calcium FiO2 Sodium Potassium 4.3 Chloride Carbon Dioxide Anion Gap BUN Creatinine GFR Calculation BUN/Creatinine Ratio Glucose 146 H POC Glucose 123 H Calculated Osmolality Calcium Venous Ioniz Calcium Magnesium Total Bilirubin AST ALT Alkaline Phosphatase Total Creatine Kinase 1065 H D CK-MB (CK-2) 78.0 H D CK and CKMB Interp 7.3 Troponin I 46.400 H D Total Protein Albumin Globulin Albumin/Globulin Ratio Urine Color Urine Appearance Urine pH Ur Specific [place] Urine Protein Urine Glucose (UA) Urine Ketones Urine Blood Urine Nitrate Urine Bilirubin Urine Urobilinogen Urine Leukocytes Urine RBC Urine WBC Urine Mucus Ur Culture Indicated? Blood Type Antibody Screen Crossmatch Blood Bank Comment 03/05/17 03/05/17 03/05/17 17:19 15:57 14:35 WBC RBC Hgb Hct MCV MCH MCHC RDW Plt Count MPV Neut % (Auto) Lymph % (Auto) [place] % (Auto) Eos % (Auto) Baso % (Auto) Neut # (Auto) Lymph # (Auto) [place] # (Auto) Eos # (Auto) Baso # (Auto) Total Counted Immature Gran % Nucleated RBC % Immature Gran # Segmented Neutrophils Band Neutrophils Lymphocytes Nucleated RBCs # Platelet Estimate INR PT Patient/Control Mix Circ Anticoag PTT Patient Temperature ABG pH 7.356 7.344 L ABG pH at Pt Temp ABG pCO2 37.1 38.2 ABG pCO2 at Pt Temp ABG pO2 181.0 H 225.0 H ABG pO2 at Pt Temp ABG HCO3 20.9 20.7 ABG Total CO2 19.0 L 19.2 L ABG O2 Saturation 99.5 99.5 ABG Base Excess -4.3 L -4.5 L ABG Sodium VBG pH VBG pCO2 VBG pO2 VBG HCO3 VBG Total CO2 VBG O2 Saturation VBG Base Excess Hemoglobin 9.6 L 9.2 L D Hematocrit 29.7 L 28.6 L Ionized Calcium FiO2 Sodium Potassium 3.8 4.4 Chloride Carbon Dioxide Anion Gap BUN Creatinine GFR Calculation BUN/Creatinine Ratio Glucose 187 H 234 H POC Glucose Calculated Osmolality Calcium Venous Ioniz Calcium Magnesium Total Bilirubin AST ALT Alkaline Phosphatase Total Creatine Kinase 357 H D CK-MB (CK-2) 26.3 H CK and CKMB Interp 7.4 Troponin I 13.000 H Total Protein Albumin Globulin Albumin/Globulin Ratio Urine Color Urine Appearance Urine pH Ur Specific [place] Urine Protein Urine Glucose (UA) Urine Ketones Urine Blood Urine Nitrate Urine Bilirubin Urine Urobilinogen Urine Leukocytes Urine RBC Urine WBC Urine Mucus Ur Culture Indicated? Blood Type Antibody Screen Crossmatch Blood Bank Comment 03/05/17 03/05/17 03/05/17 14:35 14:35 14:35 WBC 8.8 D RBC 2.38 L D Hgb 7.1 L D Hct 21.2 L MCV 89.1 MCH 30 MCHC 33.5 RDW 14.6 Plt Count 122 L D MPV 11.0 Neut % (Auto) 86.6 H Lymph % (Auto) 7.6 L [place] % (Auto) 4.6 Eos % (Auto) 0.1 Baso % (Auto) 0.1 Neut # (Auto) 7.6 H Lymph # (Auto) 0.7 L [place] # (Auto) 0.4 Eos # (Auto) 0.0 Baso # (Auto) 0.0 Total Counted 100 Immature Gran % 1.0 Nucleated RBC % 0.0 Immature Gran # 0.09 Segmented Neutrophils 93 H Band Neutrophils 2 Lymphocytes 5 L Nucleated RBCs # 0.00 Platelet Estimate Normal INR 1.4 PT Patient/Control Mix 14.7 Circ Anticoag PTT 37.3 Patient Temperature ABG pH ABG pH at Pt Temp ABG pCO2 ABG pCO2 at Pt Temp ABG pO2 ABG pO2 at Pt Temp ABG HCO3 ABG Total CO2 ABG O2 Saturation ABG Base Excess ABG Sodium VBG pH VBG pCO2 VBG pO2 VBG HCO3 VBG Total CO2 VBG O2 Saturation VBG Base Excess Hemoglobin Hematocrit Ionized Calcium FiO2 Sodium 145 Potassium 4.6 Chloride 113 H Carbon Dioxide 23 Anion Gap 13.6 BUN 22 H Creatinine 1.20 GFR Calculation 70 BUN/Creatinine Ratio 18.00 Glucose 221 H POC Glucose Calculated Osmolality 297.7 Calcium 8.1 L Venous Ioniz Calcium Magnesium 2.0 Total Bilirubin 0.90 L AST 56 H ALT 25 Alkaline Phosphatase 33 L Total Creatine Kinase CK-MB (CK-2) CK and CKMB Interp Troponin I Total Protein 3.0 L Albumin 1.8 L Globulin 1.2 L Albumin/Globulin Ratio 1.5 Urine Color Urine Appearance Urine pH Ur Specific [place] Urine Protein Urine Glucose (UA) Urine Ketones Urine Blood Urine Nitrate Urine Bilirubin Urine Urobilinogen Urine Leukocytes Urine RBC Urine WBC Urine Mucus Ur Culture Indicated? Blood Type Antibody Screen Crossmatch Blood Bank Comment 03/05/17 03/05/17 03/05/17 14:35 14:22 13:40 WBC RBC Hgb Hct MCV MCH MCHC RDW Plt Count MPV Neut % (Auto) Lymph % (Auto) [place] % (Auto) Eos % (Auto) Baso % (Auto) Neut # (Auto) Lymph # (Auto) [place] # (Auto) Eos # (Auto) Baso # (Auto) Total Counted Immature Gran % Nucleated RBC % Immature Gran # Segmented Neutrophils Band Neutrophils Lymphocytes Nucleated RBCs # Platelet Estimate INR PT Patient/Control Mix Circ Anticoag PTT Patient Temperature 37 ABG pH 7.286 L 7.307 L ABG pH at Pt Temp 7.307 ABG pCO2 45.5 43.5 ABG pCO2 at Pt Temp 43.5 ABG pO2 297.0 H 443.0 H ABG pO2 at Pt Temp 443.0 ABG HCO3 20.5 20.8 ABG Total CO2 20.7 L 20.2 L ABG O2 Saturation 99.8 100.0 ABG Base Excess -4.7 L -4.4 L ABG Sodium 136 VBG pH VBG pCO2 VBG pO2 VBG HCO3 VBG Total CO2 VBG O2 Saturation VBG Base Excess Hemoglobin 7.1 L D 8.9 L D Hematocrit 22.3 L 27.7 L Ionized Calcium 1.20 L FiO2 Sodium Potassium 4.3 4.6 Chloride Carbon Dioxide Anion Gap BUN Creatinine GFR Calculation BUN/Creatinine Ratio Glucose 224 H 227 H POC Glucose Calculated Osmolality Calcium Venous Ioniz Calcium Magnesium Total Bilirubin AST ALT Alkaline Phosphatase Total Creatine Kinase CK-MB (CK-2) CK and CKMB Interp Troponin I Total Protein Albumin Globulin Albumin/Globulin Ratio Urine Color Urine Appearance Urine pH Ur Specific [place] Urine Protein Urine Glucose (UA) Urine Ketones Urine Blood Urine Nitrate Urine Bilirubin Urine Urobilinogen Urine Leukocytes Urine RBC Urine WBC Urine Mucus Ur Culture Indicated? Blood Type Antibody Screen Crossmatch Blood Bank Comment 03/05/17 03/05/17 03/05/17 12:52 11:39 11:39 WBC RBC Hgb Hct MCV MCH MCHC RDW Plt Count 90 L MPV Neut % (Auto) Lymph % (Auto) [place] % (Auto) Eos % (Auto) Baso % (Auto) Neut # (Auto) Lymph # (Auto) [place] # (Auto) Eos # (Auto) Baso # (Auto) Total Counted Immature Gran % Nucleated RBC % Immature Gran # Segmented Neutrophils Band Neutrophils Lymphocytes Nucleated RBCs # Platelet Estimate INR PT Patient/Control Mix Circ Anticoag PTT Patient Temperature 37 37 ABG pH 7.406 7.396 ABG pH at Pt Temp 7.406 7.396 ABG pCO2 37.5 35.8 ABG pCO2 at Pt Temp 37.5 35.8 ABG pO2 332.0 H 369.0 H ABG pO2 at Pt Temp 332.0 369.0 ABG HCO3 23.6 22.3 ABG Total CO2 22.2 L 20.4 L ABG O2 Saturation 100.0 99.9 ABG Base Excess -1.0 -2.5 ABG Sodium 135 132 L VBG pH VBG pCO2 VBG pO2 VBG HCO3 VBG Total CO2 VBG O2 Saturation VBG Base Excess Hemoglobin 7.1 L 8.2 L Hematocrit 22.2 L 25.7 L Ionized Calcium 1.17 L 1.16 L FiO2 Sodium Potassium 4.3 4.5 Chloride Carbon Dioxide Anion Gap BUN Creatinine GFR Calculation BUN/Creatinine Ratio Glucose 218 H 216 H POC Glucose Calculated Osmolality Calcium Venous Ioniz Calcium Magnesium Total Bilirubin AST ALT Alkaline Phosphatase Total Creatine Kinase CK-MB (CK-2) CK and CKMB Interp Troponin I Total Protein Albumin Globulin Albumin/Globulin Ratio Urine Color Urine Appearance Urine pH Ur Specific [place] Urine Protein Urine Glucose (UA) Urine Ketones Urine Blood Urine Nitrate Urine Bilirubin Urine Urobilinogen Urine Leukocytes Urine RBC Urine WBC Urine Mucus Ur Culture Indicated? Blood Type Antibody Screen Crossmatch Blood Bank Comment 03/05/17 03/05/17 03/05/17 10:05 09:35 09:05 WBC RBC Hgb Hct MCV MCH MCHC RDW Plt Count MPV Neut % (Auto) Lymph % (Auto) [place] % (Auto) Eos % (Auto) Baso % (Auto) Neut # (Auto) Lymph # (Auto) [place] # (Auto) Eos # (Auto) Baso # (Auto) Total Counted Immature Gran % Nucleated RBC % Immature Gran # Segmented Neutrophils Band Neutrophils Lymphocytes Nucleated RBCs # Platelet Estimate INR PT Patient/Control Mix Circ Anticoag PTT Patient Temperature 36 34 35 ABG pH ABG pH at Pt Temp 7.421 7.454 7.419 ABG pCO2 ABG pCO2 at Pt Temp 36.6 34.3 37.8 ABG pO2 ABG pO2 at Pt Temp 38.6 38.1 37.9 ABG HCO3 ABG Total CO2 ABG O2 Saturation ABG Base Excess ABG Sodium 130 L 133 L 134 L VBG pH 7.406 7.410 7.390 VBG pCO2 38.4 L 39.6 L 41.6 VBG pO2 41.3 H 46.9 H 43.5 H VBG HCO3 23.8 L 24.7 24.4 VBG Total CO2 22.3 23.4 23.6 VBG O2 Saturation 77.8 83.7 79.2 VBG Base Excess -0.4 L 0.6 0.2 Hemoglobin 8.9 L 8.3 L 8.2 L D Hematocrit 27.6 L 25.9 L 25.4 L Ionized Calcium FiO2 80.00 80.00 80.00 Sodium Potassium 5.2 H 4.4 4.3 Chloride Carbon Dioxide Anion Gap BUN Creatinine GFR Calculation BUN/Creatinine Ratio Glucose 245 H 227 H 179 H POC Glucose Calculated Osmolality Calcium Venous Ioniz Calcium 0.98 L 0.99 L 0.95 L Magnesium Total Bilirubin AST ALT Alkaline Phosphatase Total Creatine Kinase CK-MB (CK-2) CK and CKMB Interp Troponin I Total Protein Albumin Globulin Albumin/Globulin Ratio Urine Color Urine Appearance Urine pH Ur Specific [place] Urine Protein Urine Glucose (UA) Urine Ketones Urine Blood Urine Nitrate Urine Bilirubin Urine Urobilinogen Urine Leukocytes Urine RBC Urine WBC Urine Mucus Ur Culture Indicated? Blood Type Antibody Screen Crossmatch Blood Bank Comment 03/05/17 03/05/17 03/05/17 07:43 07:43 07:21 WBC RBC Hgb Hct MCV MCH MCHC RDW Plt Count 99 L D MPV Neut % (Auto) Lymph % (Auto) [place] % (Auto) Eos % (Auto) Baso % (Auto) Neut # (Auto) Lymph # (Auto) [place] # (Auto) Eos # (Auto) Baso # (Auto) Total Counted Immature Gran % Nucleated RBC % Immature Gran # Segmented Neutrophils Band Neutrophils Lymphocytes Nucleated RBCs # Platelet Estimate INR PT Patient/Control Mix Circ Anticoag PTT Patient Temperature 37 ABG pH 7.392 ABG pH at Pt Temp 7.392 ABG pCO2 38.9 ABG pCO2 at Pt Temp 38.9 ABG pO2 362.0 H ABG pO2 at Pt Temp 362.0 ABG HCO3 23.6 ABG Total CO2 21.2 L ABG O2 Saturation 99.7 ABG Base Excess -1.0 ABG Sodium 137 VBG pH VBG pCO2 VBG pO2 VBG HCO3 VBG Total CO2 VBG O2 Saturation VBG Base Excess Hemoglobin 11.3 L Hematocrit 34.8 L Ionized Calcium 1.14 L FiO2 Sodium Potassium 4.2 Chloride Carbon Dioxide Anion Gap BUN Creatinine GFR Calculation BUN/Creatinine Ratio Glucose 118 H POC Glucose Calculated Osmolality Calcium Venous Ioniz Calcium Magnesium Total Bilirubin AST ALT Alkaline Phosphatase Total Creatine Kinase CK-MB (CK-2) CK and CKMB Interp Troponin I Total Protein Albumin Globulin Albumin/Globulin Ratio Urine Color Yellow Urine Appearance Clear Urine pH 6.0 Ur Specific [place] 1.015 Urine Protein Negative Urine Glucose (UA) Negative Urine Ketones Negative Urine Blood Moderate Urine Nitrate Negative Urine Bilirubin Negative Urine Urobilinogen < 2.0 H Urine Leukocytes Negative Urine RBC 33 Urine WBC 1 Urine Mucus Occasional Ur Culture Indicated? Not indicated Blood Type Antibody Screen Crossmatch Blood Bank Comment 03/05/17 03/05/17 03/05/17 05:42 05:42 05:07 WBC 4.4 RBC 4.10 Hgb 12.4 L Hct 37.3 L MCV 91.0 MCH 30 MCHC 33.2 RDW 13.6 Plt Count 139 D MPV 11.5 Neut % (Auto) 85.7 H Lymph % (Auto) 6.8 L [place] % (Auto) 6.1 Eos % (Auto) 0.7 Baso % (Auto) 0.2 Neut # (Auto) 3.8 Lymph # (Auto) 0.3 L [place] # (Auto) 0.3 Eos # (Auto) 0.0 Baso # (Auto) 0.0 Total Counted Immature Gran % 0.5 Nucleated RBC % 0.0 Immature Gran # 0.02 Segmented Neutrophils Band Neutrophils Lymphocytes Nucleated RBCs # 0.00 Platelet Estimate INR PT Patient/Control Mix Circ Anticoag PTT Patient Temperature ABG pH ABG pH at Pt Temp ABG pCO2 ABG pCO2 at Pt Temp ABG pO2 ABG pO2 at Pt Temp ABG HCO3 ABG Total CO2 ABG O2 Saturation ABG Base Excess ABG Sodium VBG pH VBG pCO2 VBG pO2 VBG HCO3 VBG Total CO2 VBG O2 Saturation VBG Base Excess Hemoglobin Hematocrit Ionized Calcium FiO2 Sodium 142 Potassium 4.7 Chloride 109 H Carbon Dioxide 25 Anion Gap 12.7 BUN 24 H Creatinine 1.20 GFR Calculation 70 BUN/Creatinine Ratio 20.00 Glucose 104 POC Glucose 83 Calculated Osmolality 286.1 Calcium 8.4 L Venous Ioniz Calcium Magnesium 2.2 Total Bilirubin AST ALT Alkaline Phosphatase Total Creatine Kinase CK-MB (CK-2) CK and CKMB Interp Troponin I Total Protein Albumin Globulin Albumin/Globulin Ratio Urine Color Urine Appearance Urine pH Ur Specific [place] Urine Protein Urine Glucose (UA) Urine Ketones Urine Blood Urine Nitrate Urine Bilirubin Urine Urobilinogen Urine Leukocytes Urine RBC Urine WBC Urine Mucus Ur Culture Indicated? Blood Type Antibody Screen Crossmatch Blood Bank Comment 03/04/17 05:33 WBC RBC Hgb Hct MCV MCH MCHC RDW Plt Count MPV Neut % (Auto) Lymph % (Auto) [place] % (Auto) Eos % (Auto) Baso % (Auto) Neut # (Auto) Lymph # (Auto) [place] # (Auto) Eos # (Auto) Baso # (Auto) Total Counted Immature Gran % Nucleated RBC % Immature Gran # Segmented Neutrophils Band Neutrophils Lymphocytes Nucleated RBCs # Platelet Estimate INR PT Patient/Control Mix Circ Anticoag PTT Patient Temperature ABG pH ABG pH at Pt Temp ABG pCO2 ABG pCO2 at Pt Temp ABG pO2 ABG pO2 at Pt Temp ABG HCO3 ABG Total CO2 ABG O2 Saturation ABG Base Excess ABG Sodium VBG pH VBG pCO2 VBG pO2 VBG HCO3 VBG Total CO2 VBG O2 Saturation VBG Base Excess Hemoglobin Hematocrit Ionized Calcium FiO2 Sodium Potassium Chloride Carbon Dioxide Anion Gap BUN Creatinine GFR Calculation BUN/Creatinine Ratio Glucose POC Glucose Calculated Osmolality Calcium Venous Ioniz Calcium Magnesium Total Bilirubin AST ALT Alkaline Phosphatase Total Creatine Kinase CK-MB (CK-2) CK and CKMB Interp Troponin I Total Protein Albumin Globulin Albumin/Globulin Ratio Urine Color Urine Appearance Urine pH Ur Specific [place] Urine Protein Urine Glucose (UA) Urine Ketones Urine Blood Urine Nitrate Urine Bilirubin Urine Urobilinogen Urine Leukocytes Urine RBC Urine WBC Urine Mucus Ur Culture Indicated? Blood Type A POSITIVE Antibody Screen Negative Crossmatch See Detail Blood Bank Comment DS: Provider Date of admission: 02/27/17 22:16 Primary care physician: . No PCP Attending physician on admission: Sharmin Ferrari DO Consults: 03/03/17 06:30 Consult to Dietitian [CONS] Routine Reason for Dietitian: Other Consult Comment: low salt, low cholesterol, diet Discharging clinician: Varun Greenwood MD Expected date of discharge: 03/06/17
[2017-03-06] MEDS: KETOROLAC 30 MG/1 ML VIAL IV SCH (03:14)
[2017-03-06 03:57] VITALS: BP 57/12
[2017-03-06 12:02] LABS: Bilirubin,Total 0.9 MG/DL (0.2-1.0)
== END 2017-03-06 02:49 | disposition expired | DRG 234 ==
LOC: EDUNIT# → EDBD → N.ED 21:17 → N.EDINP 22:16 → N.CC 23:10 → N.TELEN 03-01 12:43 → N.CVR 03-05 10:00
PROVIDERS: ADMIT Internal Medicine Cardiovascular Disease; ATTEND Internal Medicine Cardiovascular Disease